=== PATIENT | male | born 1930 | race Caucasian/White ===

== ENCOUNTER → 2017-07-27 | Outpatient (CLI) | payer OTHER ==
[~2017-07-27] MED LIST: ASPCH81X PO; GLC500 PO; GLIM2TAB2 PO; LISI-729 PO; METO25TA56 PO; MULT-513 PO; OMEP20CA9 PO; PSYL55.43 PO; SIMV20TA2 PO
[2017-07-27 17:01] LABS: BASO % 0.5 %; BASO ABS # 0.02 K/uL (0-0.2); COMPLETE YES; EOS % 3.6 %; HEMATOCRIT 39.1 % (42-52); IG% 0.2 %; LYMPH ABS # 1.36 K/uL (1.2-3.4); MEAN CELL VOLUME 89.1 fL (80-100); MEAN CORPUSCULAR HEMOGLOBIN 30.1 pg (25-34); MEAN CORPUSCULAR HGB CONC 33.8 g/dl (32-36); MEAN PLATELET VOLUME 9.3 fL (7.4-10.4); MONO % 9.6 %; NEUT % 55.1 %; PLATELET COUNT 178 K/uL (130-400); RED BLOOD COUNT 4.39 M/uL (4.7-6.1); WHITE BLOOD COUNT 4.39 K/uL (4.8-10.8)
[2017-07-27 17:02] LABS: ALT/SGPT 26 U/L (12-78); AST/SGOT 18 U/L (15-37); BLOOD UREA NITROGEN 22 mg/dl (7-18); CALCIUM 8.8 mg/dl (8.5-10.1); CARBON DIOXIDE 29 mmol/L (21-32); CHLORIDE 101 mmol/L (98-107); GLUCOSE 288 mg/dl (70-99); POTASSIUM 4.8 mmol/L (3.5-5.1); SODIUM 136 mmol/L (136-145)
[2017-07-27 17:12] LABS: ALKALINE PHOSPHATASE 124 U/L (45-117)
[2017-07-28 06:30] LABS: ESTIMATED AVERAGE GLUCOSE 186 mg/dl; HA1C FLAG Normal (Normal)
--- NOTE | 2017-08-06 14:53 | CODING QUERY MEDICAL NECESSITY ---
SUPPORTING DIAGNOSIS NEEDED A supporting diagnosis is required for the test/procedure performed on this patient in order for us to be reimbursed by the patient's insurance. Please provide a supporting diagnosis for the following test/procedure listed below next to the test name along with your signature. *If there is no additional diagnosis for this patient that would support the following test/procedure please document that below next to the test/procedure. Test(s)/Procedure(s) that require a supporting diagnosis: * HEMOGLOBIN A1C DIAGNOSIS: Provider Signature: Date: Thank you Brittany Joseph [employer] Once completed, please kindly fax back to [phone] For questions please call [phone]
== END | disposition home or self-care (01) ==
LOC: C.LABPBG 14:22
PROVIDERS: ATTEND Internal Medicine
DX: J84.9 Interstitial pulmonary disease, unspecified (principal); E11.9 Type 2 diabetes mellitus without complications

== ENCOUNTER → 2017-08-05 | Outpatient (CLI) | payer OTHER ==
--- NOTE | 2017-08-05 08:57 | DIAGNOSTIC IMAGING REPORT ---
(CHEST) THORAX WITHOUT CLINICAL HISTORY: 87 years-old Male presenting with shortness of breath, interstitial lung disease. TECHNIQUE: Multidetector CT imaging of the chest was performed without the use of intravenous contrast. IV contrast: None. A dose lowering technique was used consistent with the principles of ALARA (as low as reasonably achievable). COMPARISON: 10/25/2012. CT DOSE (mGy.cm): The estimated cumulative dose is 386.64 mGy.cm. FINDINGS: Clerk To Justice topogram: Unremarkable. On soft tissue windows, normal thyroid and thoracic inlet. No axillary, supraclavicular, hilar, or mediastinal lymphadenopathy. Atherosclerosis of aortic arch. Mild enlargement of the main pulmonary artery, which measures 3.3 cm in maximal transverse dimension. Aortic valve and coronary artery calcification. Normal heart size. No pericardial or pleural effusion. Few small hypodensities in the liver, indeterminate but likely hepatic cysts or hamartomas. Borderline hepatic steatosis. Duodenal diverticulum. On lung windows, subpleural reticular opacities involving both the upper and lower lobes bilaterally. Only minimal focal subpleural cystic change along the right lower lobe could suggest honeycombing. There may be slight interval progression of subpleural cystic change along the right lateral lung. Otherwise, changes are chronic and similar to 2012. No evidence of emphysema. Mild interlobular septal thickening diffusely. Mosaic attenuation suggest small airways disease. No superimposed pulmonary nodule or infiltrate. Airways patent. On bone windows, mild degenerative changes of the thoracic spine. IMPRESSION: 1. Stable to slight interval progression of chronic interstitial lung disease with slight interval increase in subpleural cystic change suggestive of honeycombing. This could suggest usual interstitial pneumonia, although the lack of progression since 2011 and minimal degree of honeycombing could suggest an alternate diagnosis. No findings characteristic of nonspecific interstitial pneumonia or smoking related lung injury. Electronically signed by: Wesley Polanco M.D. 08/05/2017 8:56 AM Dictated Date/Time: 08/05/2017 8:44 AM
== END | disposition home or self-care (01) ==
LOC: C.CTS 08:31
PROVIDERS: ATTEND Internal Medicine
DX: R93.8 Abnormal findings on diagnostic imaging of other specified body structures (principal); J84.9 Interstitial pulmonary disease, unspecified; R05 Cough

== ENCOUNTER → 2017-10-05 | Outpatient (CLI) | payer OTHER ==
[2017-10-05 12:17] LABS: BASO % 0.6 %; BASO ABS # 0.03 K/uL (0-0.2); COMPLETE YES; EOS % 3.7 %; IG% 0.2 %; LYMPH % 30.8 %; LYMPH ABS # 1.48 K/uL (1.2-3.4); MEAN CELL VOLUME 90.3 fL (80-100); MEAN CORPUSCULAR HEMOGLOBIN 29.8 pg (25-34); MEAN PLATELET VOLUME 9.6 fL (7.4-10.4); NEUT % 54.7 %; PLATELET COUNT 164 K/uL (130-400); RED BLOOD COUNT 4.43 M/uL (4.7-6.1); WHITE BLOOD COUNT 4.81 K/uL (4.8-10.8)
[2017-10-05 12:42] LABS: ALT/SGPT 18 U/L (12-78); BLOOD UREA NITROGEN 23 mg/dl (7-18); BUN/CREATININE RATIO 17.1 (10-20); CARBON DIOXIDE 27 mmol/L (21-32); CHLORIDE 102 mmol/L (98-107); CREATININE 1.33 mg/dl (0.60-1.40); GLUCOSE 167 mg/dl (70-99); POTASSIUM 4.2 mmol/L (3.5-5.1); SODIUM 137 mmol/L (136-145)
[2017-10-05 12:45] LABS: ALKALINE PHOSPHATASE 101 U/L (45-117); AST/SGOT 12 U/L (15-37)
[2017-10-05 12:51] LABS: ESTIMATED AVERAGE GLUCOSE 194 mg/dl; HA1C FLAG Normal (Normal)
== END | disposition home or self-care (01) ==
LOC: C.LABPBG 08:39
PROVIDERS: ATTEND Internal Medicine
DX: E11.22 Type 2 diabetes mellitus with diabetic chronic kidney disease (principal); E78.5 Hyperlipidemia, unspecified; D64.9 Anemia, unspecified; R53.82 Chronic fatigue, unspecified; E11.42 Type 2 diabetes mellitus with diabetic polyneuropathy; I12.9 Hypertensive chronic kidney disease with stage 1 through stage 4 chronic kidney disease, or unspecified chronic kidney disease; N18.3 Chronic kidney disease, stage 3 (moderate)

== ENCOUNTER 2019-08-07 15:39 | Inpatient (IN) ==
[2019-08-07] MEDS ORDERED: ALBUT/IPRATROP 3MG/0.5MG NEB 3 ML VIAL NEB STA (16:09)
[2019-08-07] MEDS ORDERED: SODIUM CHLORIDE 0.9% 1000ML 1,000 ML IV ONE (16:09)
[2019-08-07 16:42] LABS: Basophils # (auto) 0.03 K/uL (0-0.2); Basophils % (auto) 0.3 %; Eosinophils # (auto) 0.17 K/uL (0-0.5); Eosinophils % (auto) 1.8 %; Hematocrit (blood only) 38.4 % (42-52); Hemoglobin 12.6 g/dL (14.0-18.0); Immature Granulocytes # (auto) 0.01 K/uL (0.00-0.02); Immature Granulocytes % (auto) 0.1 %; Lymphocytes # (auto) 4.52 K/uL (1.2-3.4); Lymphocytes % (auto) 48.1 %; Mean Corpuscular Hemoglobin 29.7 pg (25-34); Mean Corpuscular Hgb Conc 32.8 g/dL (32-36); Mean Corpuscular Volume 90.6 fL (80-100); Mean Platelet Volume 9.7 fL (7.4-10.4); Monocytes # (auto) 0.86 K/uL (0.11-0.59); Monocytes % (auto) 9.1 %; Neutrophils # (auto) 3.81 K/uL (1.4-6.5); Neutrophils % (auto) 40.6 %; Platelet Count 208 K/uL (130-400); RDW Coefficient of Variation 13.6 % (11.5-14.5); Red Blood Count 4.24 M/uL (4.7-6.1)
--- NOTE | 2019-08-07 16:58 | CT Scan Report ---
CT head/brain wo con CLINICAL HISTORY: 89 years-old Male presenting with syncope, fall. TECHNIQUE: Multidetector CT imaging of the head was performed without the use of intravenous contrast . IV contrast: None. One or more dose lowering techniques were used consistent with the principles of ALARA (as low as reasonably achievable), including automatic exposure control, mA or kV adjustment t o individual patient size, and/or use of iterative reconstruction. COMPARISON: 06/10/2019. CT DOSE (mGy.cm): The estimated cumulative dose is 729.78 mGycm. FINDINGS: Files Supervisor topogram: Unremarkable. Proportional ventricular and sulcal prominence, likely age-related parenchymal volume loss. No hemorr dali. Periventricular and subcortical white matter hypoattenuation, nonspecific but likely indicative of chronic small vessel ischemic change. No acute territorial infarct. No mass effect or midline loretta ft. No extra-axial fluid collection. Paranasal sinuses and mastoid air cells clear. Calvarium intact. IMPRESSION: 1. Chronic small vessel ischemic change. No acute intracranial abnormality. Electronically signed by: Wesley Polanco M.D. 08/07/2019 4:56 PM
[2019-08-07 17:01] LABS: Alanine Aminotransferase 17 U/L (12-78); Albumin Level 3.4 gm/dl (3.4-5.0); Aspartate Aminotransferase 12 U/L (15-37); BUN Creatinine Ratio 16.2 (10-20); Blood Urea Nitrogen 30 mg/dl (7-18); Calcium 8.7 mg/dl (8.5-10.1); Carbon Dioxide 18 mmol/L (21-32); Chloride 104 mmol/L (98-107); Creatinine Clr Calc Pharmacy 29.5 ml/min; Est GFR (African American) 37.9; Est GFR (Non-African American) 32.7; Glucose 151 mg/dl (70-99); Lipase 170 U/L (73-393); Sodium 137 mmol/L (136-145)
--- NOTE | 2019-08-07 17:07 | CT Scan Report ---
CT cervical spine wo con CLINICAL HISTORY: 89 years-old Male presenting with syncope, fall, trauma. TECHNIQUE: Multidetector CT of the cervical spine was performed without the use of intravenous contra st. IV contrast: None. One or more dose lowering techniques were used consistent with the principles of ALARA (as low as reasonably achievable), including automatic exposure control, mA or kV adjustment to individual patient size, and/or use of iterative reconstruction. COMPARISON: 08/28/2012. CT DOSE (mGy.cm): The estimated cumulative dose is 446.00 mGycm. FINDINGS: Data Communications Engineer topogram: Unremarkable. Normal cervical lordosis. Osteopenia. Vertebral bodies maintain normal height and alignment. Interver tebral disc height loss to a moderate to severe degree at C5-6 and C6-7, where there are disc osteoph yte complexes. Mild to moderate posterior spondylitic spurring at C5-6 with a disc bulge resulting in moderate effacement of the spinal canal at this level. Narrowing of the spinal canal noted to a less er degree due to spondylitic spurring at C3-4 and C6-7. Facet arthropathy and uncovertebral hypertrop hy result in varying degrees of osseous neural foraminal narrowing at several levels. Degenerative ch anges of the atlantodental articulation. No acute fracture or subluxation allowing for the severity o f osteopenia and degenerative change. Visualized portion of the skull base intact. Paraspinal soft ti ssues within normal limits. IMPRESSION: 1. No acute osseous injury of the cervical spine. 2. Suspected osteopenia. 3. Multilevel degenerative changes with multilevel osseous spinal canal and neural foraminal narrowi ng. Electronically signed by: Wesley Polanco M.D. 08/07/2019 5:06 PM
[2019-08-07 17:12] LABS: Albumin Globulin Ratio 0.9 (0.9-2); Alkaline Phosphatase 107 U/L (45-117); Bilirubin,Total 0.4 mg/dl (0.2-1); Globulin 3.6 gm/dl (2.5-4.0); NT Pro B Type Natriuretic Pept 182 pg/ml (0-1800); Troponin I < 0.015 ng/ml (0-0.045)
--- NOTE | 2019-08-07 17:12 | XRay Report ---
XR chest 1V portable CLINICAL HISTORY: 89 years-old Male presenting with syncope. TECHNIQUE: Portable upright AP view of the chest was obtained. COMPARISON: 06/10/2019. FINDINGS: Atherosclerosis of the aortic arch. Cardiac silhouette mildly enlarged. Bronchial wall thickening and coarsened lung markings with reticular opacities in the periphery of the right lung and at both lung bases. The appearance is unchanged from prior. No superimposed new focal opacity. No large effusion or pneumothorax. Osseous structures normal. Upper abdomen normal. IMPRESSION: 1. Mild cardiomegaly. 2. Chronic coarsened lung markings with peripheral and bibasilar reticular opacities likely relating to underlying chronic lung disease. No superimposed infiltrate to suggest pneumonia. Electronically signed by: Wesley Polanco M.D. 08/07/2019 5:11 PM
--- NOTE | 2019-08-07 17:27 | Emergency Department Note ---
Entered by Beckie Diaz acting as a scribe for History of Present Illness General Chief complaint: Illness Stated complaint: SYNCOPE, AMS, HYPOTENSION, Time Seen by Provider: 08/07/19 16:00 Source: patient History of Present Illness Provider complaint: Syncope Onset (ago): hour(s) 1 Radiation: non-radiation Pain Consistency: + other (Episodic ) Relieved By: + none Exacerbated By: + none Associated symptoms: + denies other symptoms (Head, neck, or back pain), + cough, + diaphoresis, + nausea/vomiting and + other (Looked "lopez", eyes rolled back in head); no shortness of breath The patient is a 89 year old male who presents to the Emergency Room with complaints of episodic syncope that occurred about an hour ago. The patient's family states that the patient fell asleep at the dinner table and got up to sleep on the couch when he took a few steps and fainted. The patient's family reports the patient was in and out of consciousness for about 10 minutes. The patient's family states the patient's symptoms do not radiate anywhere else on his body and is not relieved nor exacerbated by anything specific. The patient's family reports the patient's eyes rolled back in his head and he appeared "sweaty" and his skin looked lopez. Additionally, the patient's family states the patient experienced nausea/vomiting and a worsening cough. The patient's family denies the patient experiencing any shortness of breath. Additionally, the patient's family denies the patient having any head, neck, or back pain. The patient's family notes the patient has been in the ED before for similar symptoms and that these episodes have been going on for about a year. No other recent illness, no recent medication changes, no dietary changes. Patient states he felt well earlier today and got up and went to [facility]. Home Medications Home Medications Medication Instructions Recorded Confirmed Type glimepiride 2 mg tablet 2 mg PO QAM #180 tab 05/30/19 08/07/19 Rx simvastatin 40 mg tablet 20 mg PO QPM #45 tab 05/30/19 08/07/19 Rx acetaminophen [Tylenol Arthritis 650 mg PO QAM PRN 06/10/19 08/07/19 History Pain] aspirin [Adult Aspirin Regimen] 81 mg PO QAM 06/10/19 08/07/19 History metoprolol succinate 12.5 mg PO QAM 06/10/19 08/07/19 History omeprazole 20 mg PO QAM 06/10/19 08/07/19 History metformin 1,000 mg PO BIDM 08/07/19 08/07/19 History Allergies Allergy/AdvReac Type Severity Reaction Status Date / Time No Known Drug Allergies Allergy . 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) Anemia (Acute) Diabetes mellitus (Chronic) Osteoarthritis (Chronic) Lumbar radiculopathy (Chronic) Low back pain (Chronic) Hypercholesteremia (Chronic) HTN (hypertension) (Chronic) Surgical History Hx of appendectomy (Resolved) History of cholecystectomy (Resolved) Family History Mother Acute myocardial infarction Valvular heart disease Sister Alzheimer disease Daughter Multiple sclerosis Social History Preferred Language: German Communication Ability: Effective Visual Impairment: Limited Hearing Ability: Use of Hearing Aid Garment Manufacturer Required: No Beliefs That Will Affect Care: None marital status: Current Living Situation: Spouse current occupational status: retired Feels Safe at Home: Yes Smoking Status: Never smoker Hx Alcohol Use: No Hx Substance Use: No caffeine: Yes Seatbelt Use: always Review of Systems See HPI for pertinent positives & negatives. and A total of 10 systems reviewed and were otherwise negative Physical Exam Vital Signs Vital Signs - 24 hr 08/07/19 15:44 08/07/19 15:47 08/07/19 15:53 Temperature 36.6 C Temperature Source Oral Sepsis Recent Fever Within 48 Hours No Sepsis Action Taken by Nursing No Action Required Pulse Rate 75 72 74 Pulse Rate [Finger] Pulse Rate from SpO2 Sensor 76 76 Pulse Rhythm Regular Pulse Strength Normal Respiratory Rate 22 26 H 20 Respiratory Effort / Characteristics Non-Labored Spontaneous Respiratory Depth Normal Respiratory Pattern Regular Blood Pressure 102/61 102/61 Blood Pressure Mean 74 74 Blood Pressure Position Lying Pulse Oximetry 96 93 Oxygen Delivery Method Room Air Oxygen Flow Rate 08/07/19 16:00 08/07/19 16:07 08/07/19 16:29 Temperature Temperature Source Sepsis Recent Fever Within 48 Hours Sepsis Action Taken by Nursing Pulse Rate 73 70 Pulse Rate [Finger] 80 Pulse Rate from SpO2 Sensor 77 70 Pulse Rhythm Pulse Strength Respiratory Rate 19 18 17 Respiratory Effort / Characteristics Spontaneous Respiratory Depth Respiratory Pattern Blood Pressure 85/43 L 77/45 L Blood Pressure Mean 57 55 Blood Pressure Position Pulse Oximetry 93 94 94 Oxygen Delivery Method Nasal Cannula Oxygen Flow Rate 2 08/07/19 16:30 08/07/19 16:32 08/07/19 16:37 Temperature Temperature Source Sepsis Recent Fever Within 48 Hours Sepsis Action Taken by Nursing Pulse Rate 78 78 79 Pulse Rate [Finger] Pulse Rate from SpO2 Sensor 76 81 80 Pulse Rhythm Pulse Strength Respiratory Rate 19 22 26 H Respiratory Effort / Characteristics Respiratory Depth Respiratory Pattern Blood Pressure 118/67 Blood Pressure Mean 84 Blood Pressure Position Pulse Oximetry 98 91 94 Oxygen Delivery Method Oxygen Flow Rate 08/07/19 17:00 08/07/19 17:06 08/07/19 17:16 Temperature Temperature Source Sepsis Recent Fever Within 48 Hours Sepsis Action Taken by Nursing Pulse Rate 88 86 130 H Pulse Rate [Finger] Pulse Rate from SpO2 Sensor Pulse Rhythm Pulse Strength Respiratory Rate 24 22 26 H Respiratory Effort / Characteristics Respiratory Depth Respiratory Pattern Blood Pressure 118/41 L 93/62 L Blood Pressure Mean 66 72 Blood Pressure Position Pulse Oximetry Oxygen Delivery Method Oxygen Flow Rate 08/07/19 17:30 08/07/19 17:39 08/07/19 17:41 Temperature Temperature Source Sepsis Recent Fever Within 48 Hours Sepsis Action Taken by Nursing Pulse Rate 125 H 136 H 127 H Pulse Rate [Finger] Pulse Rate from SpO2 Sensor Pulse Rhythm Pulse Strength Respiratory Rate 31 H 21 24 Respiratory Effort / Characteristics Respiratory Depth Respiratory Pattern Blood Pressure 92/59 L 85/56 L 90/57 L Blood Pressure Mean 70 65 68 Blood Pressure Position Pulse Oximetry Oxygen Delivery Method Oxygen Flow Rate 08/07/19 17:45 08/07/19 17:51 08/07/19 18:00 Temperature Temperature Source Sepsis Recent Fever Within 48 Hours Sepsis Action Taken by Nursing Pulse Rate 93 H 91 H 94 H Pulse Rate [Finger] Pulse Rate from SpO2 Sensor Pulse Rhythm Pulse Strength Respiratory Rate 26 H 27 H 31 H Respiratory Effort / Characteristics Respiratory Depth Respiratory Pattern Blood Pressure 104/58 L 104/52 L Blood Pressure Mean 73 69 Blood Pressure Position Pulse Oximetry Oxygen Delivery Method Oxygen Flow Rate 08/07/19 18:01 08/07/19 18:12 Temperature Temperature Source Sepsis Recent Fever Within 48 Hours Sepsis Action Taken by Nursing Pulse Rate 97 H 95 H Pulse Rate [Finger] Pulse Rate from SpO2 Sensor Pulse Rhythm Pulse Strength Respiratory Rate 24 25 H Respiratory Effort / Characteristics Respiratory Depth Respiratory Pattern Blood Pressure 94/47 L 121/48 L Blood Pressure Mean 62 72 Blood Pressure Position Pulse Oximetry Oxygen Delivery Method Oxygen Flow Rate GENERAL: alert, well appearing, well nourished, no distress, non-toxic EYE EXAM: normal conjunctiva, PERRL and EOM's grossly intact OROPHARYNX: no exudate, no erythema, lips, buccal mucosa, and tongue normal and mucous membranes are moist NECK: supple, no nuchal rigidity, no adenopathy, non-tender LUNGS: Clear to auscultation. Normal chest wall mechanics. No wheeze, rhonchi, or rales. Frequent cough during exam. HEART: no murmurs, S1 normal and S2 normal. 77 NSR irregular rhythm. SA. Hypotensive. ABDOMEN: abdomen soft, non-tender, normo-active bowel sounds, no masses, no rebound or guarding. BACK: Back is symmetrical on inspection and there is no deformity, no midline tenderness, no CVA tenderness. SKIN: no rashes and no bruising UPPER EXTREMITIES: upper extremities are grossly normal. FROM, nml pulses b/l. LOWER EXTREMITIES: No pitting edema. FROM, nml pulses b/l. NEURO EXAM: Normal sensorium, cranial nerves II-XII grossly intact, normal speech, no gross weakness of arms, no gross weakness of legs. Course 1601: Past medical records reviewed. The patient was evaluated in room A12B. A complete history and physical exam was performed. 1614: I reviewed the patient's previous ER visit for syncope on May 2019 and the symptoms are very similar to that last visit. 1741: I reevaluated the patient and he was in rapid Afib and complaining of chest pain. However, the patient spontaneously concerted to a sinus rhythm in the 90's in front of me. The patient's chest pain began to resolve and his pressure came back up. 1757: I spoke with Dr. Richmond Oleary about the patient's case and he said we can Heparinize the patient. He will accept the patient for further evaluation. Administered Medications Acetaminophen (Tylenol) 650 mg PO Q4H PRN PRN Reason: Pain or Fever Stop: 09/06/19 18:19 Last Admin: 08/08/19 01:05 Dose: 650 mg Documented by: [id number] Heparin Sodium/Dextrose (Heparin Sodium/Dextrose) 25,000 units in 500 mls @ 18 mls/hr IV .Q24H BREANNA; Protocol Stop: 09/06/19 17:59 Last Admin: 08/07/19 18:28 Dose: 900 units/hr, 18 mls/hr Documented by: [id number] Cosigned by: [id number] Sodium Chloride (Nss 1000ml) 1,000 mls @ 70 mls/hr IV .[id number] BREANNA Stop: 09/06/19 18:29 Last Admin: 08/07/19 20:21 Dose: 70 mls/hr Documented by: [id number] Insulin Aspart (Novolog Flexpen) 0 units SC ACHS BREANNA Stop: 09/06/19 20:59 Last Admin: 08/07/19 20:50 Dose: 4 units Documented by: [id number] Cosigned by: [id number] Simvastatin (Zocor) 20 mg PO QPM BREANNA Stop: 09/06/19 20:59 Last Admin: 08/07/19 20:50 Dose: 20 mg Documented by: [id number] Discontinued Medications Albuterol (Duoneb) 3 ml NEB NOW STA Stop: 08/07/19 16:10 Last Admin: 08/07/19 16:27 Dose: 3 ml Documented by: [id number] Albuterol (Duoneb) 3 ml NEB NOW STA Stop: 08/08/19 01:20 Last Admin: 08/08/19 01:42 Dose: 3 ml Documented by: [id number] Heparin Sodium (Porcine) (Heparin Sodium (Porcine)) Confirm Administered Dose 5,000 units .ROUTE .STK-MED ONE Stop: 08/07/19 18:22 Last Admin: 08/07/19 18:29 Dose: 4,000 units Documented by: [id number] Cosigned by: [id number] Heparin Sodium/Dextrose () 1 ea N/A NOW STA; Protocol Stop: 08/07/19 17:58 Last Admin: 08/07/19 18:32 Dose: Not Given Documented by: [id number] Sodium Chloride (Nss 1000ml) 1,000 mls @ 999 mls/hr IV .Q1H1M ONE Stop: 08/07/19 17:09 Last Admin: 08/07/19 16:43 Dose: Not Given Documented by: [id number] Ondansetron HCl (Zofran) Confirm Administered Dose 4 mg .ROUTE .STK-MED ONE Stop: 08/07/19 17:38 Last Admin: 08/07/19 17:58 Dose: 4 mg Documented by: [id number] Medical Decision Making Differential Diagnosis Differential diagnosis: Etiologies such as vasovagal event, infection, anemia, hypoglycemia, hypovolemia, electrolyte abnormalities, dysrhythmias, cardiac ischemia, cardiac tamponade, valvular heart disease, structural heart disease, seizure, vascular stenosis/dissection, pulmonary embolism, intracerebral event, toxicological process, neurologic event, as well as others were entertained. Medical Records Attestation: I reviewed the patient's medical records. Home Medications Current Medication List: was personally reviewed by me Laboratory Data Attestation: I reviewed the patient's lab results. Result diagrams: 08/07/19 15:00 08/07/19 15:00 Lab Results 08/07/19 08/07/19 08/07/19 Range/Units 15:00 15:00 15:00 WBC 9.40 (4.8-10.8) K/uL RBC 4.24 L (4.7-6.1) M/uL Hgb 12.6 L (14.0-18.0) g/dL Hct 38.4 L (42-52) % MCV 90.6 (80-100) fL MCH 29.7 (25-34) pg MCHC 32.8 (32-36) g/dL RDW Std Deviation 45.0 (36.4-46.3) fL RDW Coeff of Edward 13.6 (11.5-14.5) % Plt Count 208 (130-400) K/uL MPV 9.7 (7.4-10.4) fL Immature Gran % (Auto) 0.1 % Neut % (Auto) 40.6 % Lymph % (Auto) 48.1 % Baldwin % (Auto) 9.1 % Eos % (Auto) 1.8 % Baso % (Auto) 0.3 % Immature Gran # (Auto) 0.01 (0.00-0.02) K/uL Neut # (Auto) 3.81 (1.4-6.5) K/uL Lymph # (Auto) 4.52 H (1.2-3.4) K/uL Baldwin # (Auto) 0.86 H (0.11-0.59) K/uL Eos # (Auto) 0.17 (0-0.5) K/uL Baso # (Auto) 0.03 (0-0.2) K/uL Sodium 137 (136-145) mmol/L Potassium 4.0 (3.5-5.1) mmol/L Chloride 104 (98-107) mmol/L Carbon Dioxide 18 L (21-32) mmol/L Anion Gap 15.0 H (3-11) BUN 30 H (7-18) mg/dl Creatinine 1.82 H (0.6-1.4) mg/dl Est Cr Clr Drug Dosing 29.5 ml/min Est GFR ( Amer) 37.9 Est GFR (Non-Af Amer) 32.7 BUN/Creatinine Ratio 16.2 (10-20) Glucose 151 H (70-99) mg/dl Lactate (0.4-2.0) mmol/L Calcium 8.7 (8.5-10.1) mg/dl Magnesium 2.0 (1.8-2.4) mg/dl Total Bilirubin 0.4 (0.2-1) mg/dl AST 12 L (15-37) U/L ALT 17 (12-78) U/L Alkaline Phosphatase 107 (45-117) U/L Troponin I < 0.015 (0-0.045) ng/ml NT-Pro-B Natriuret Pep 182 (0-1800) pg/ml Total Protein 7.0 (6.4-8.2) gm/dl Albumin 3.4 (3.4-5.0) gm/dl Globulin 3.6 (2.5-4.0) gm/dl Albumin/Globulin Ratio 0.9 (0.9-2) Lipase 170 (73-393) U/L Procalcitonin < 0.05 (0-0.5) ng/ml TSH 8.900 H (0.300-4.500) uIu/ml 08/07/19 Range/Units 16:41 WBC (4.8-10.8) K/uL RBC (4.7-6.1) M/uL Hgb (14.0-18.0) g/dL Hct (42-52) % MCV (80-100) fL MCH (25-34) pg MCHC (32-36) g/dL RDW Std Deviation (36.4-46.3) fL RDW Coeff of Edward (11.5-14.5) % Plt Count (130-400) K/uL MPV (7.4-10.4) fL Immature Gran % (Auto) % Neut % (Auto) % Lymph % (Auto) % Baldwin % (Auto) % Eos % (Auto) % Baso % (Auto) % Immature Gran # (Auto) (0.00-0.02) K/uL Neut # (Auto) (1.4-6.5) K/uL Lymph # (Auto) (1.2-3.4) K/uL Baldwin # (Auto) (0.11-0.59) K/uL Eos # (Auto) (0-0.5) K/uL Baso # (Auto) (0-0.2) K/uL Sodium (136-145) mmol/L Potassium (3.5-5.1) mmol/L Chloride (98-107) mmol/L Carbon Dioxide (21-32) mmol/L Anion Gap (3-11) BUN (7-18) mg/dl Creatinine (0.6-1.4) mg/dl Est Cr Clr Drug Dosing ml/min Est GFR ( Amer) Est GFR (Non-Af Amer) BUN/Creatinine Ratio (10-20) Glucose (70-99) mg/dl Lactate 3.4 H* (0.4-2.0) mmol/L Calcium (8.5-10.1) mg/dl Magnesium (1.8-2.4) mg/dl Total Bilirubin (0.2-1) mg/dl AST (15-37) U/L ALT (12-78) U/L Alkaline Phosphatase (45-117) U/L Troponin I (0-0.045) ng/ml NT-Pro-B Natriuret Pep (0-1800) pg/ml Total Protein (6.4-8.2) gm/dl Albumin (3.4-5.0) gm/dl Globulin (2.5-4.0) gm/dl Albumin/Globulin Ratio (0.9-2) Lipase (73-393) U/L Procalcitonin (0-0.5) ng/ml TSH (0.300-4.500) uIu/ml Imaging Data Radiologist's Impression: Radiology results as stated below per my review and the radiologist's interpretation: XR chest 1V portable CLINICAL HISTORY: 89 years-old Male presenting with syncope. TECHNIQUE: Portable upright AP view of the chest was obtained. COMPARISON: 06/10/2019. FINDINGS: Atherosclerosis of the aortic arch. Cardiac silhouette mildly enlarged. Bronchial wall thickening and coarsened lung markings with reticular opacities in the periphery of the right lung and at both lung bases. The appearance is unchanged from prior. No superimposed new focal opacity. No large effusion or pneumothorax. Osseous structures normal. Upper abdomen normal. IMPRESSION: 1. Mild cardiomegaly. 2. Chronic coarsened lung markings with peripheral and bibasilar reticular opacities likely relating to underlying chronic lung disease. No superimposed infiltrate to suggest pneumonia. Electronically signed by: Wesley Polanco M.D. 08/07/2019 5:[address] head/brain wo con CLINICAL HISTORY: 89 years-old Male presenting with syncope, fall. TECHNIQUE: Multidetector CT imaging of the head was performed without the use of intravenous contrast. IV contrast: None. One or more dose lowering techniques were used consistent with the principles of ALARA (as low as reasonably a chievable), including automatic exposure control, mA or kV adjustment to individual patient size, and/or use of iterative reconstruction. COMPARISON: 06/10/2019. CT DOSE (mGy.cm): The estimated cumulative dose is 729.78 mGycm. FINDINGS: Relief Driller topogram: Unremarkable. Proportional ventricular and sulcal prominence, likely age-related parenchymal volume loss. No hemorrhage. Periventricular and subcortical white matter hypoattenuation, nonspecific but likely indicative of chronic small vessel is chemic change. No acute territorial infarct. No mass effect or midline shift. No extra-axial fluid collection. Paranasal sinuses and mastoid air cells clear. Calvarium intact. IMPRESSION: 1. Chronic small vessel ischemic change. No acute intracranial abnormality. Electronically signed by: Wesley Polanco M.D. 08/07/2019 4:[address] cervical spine wo con CLINICAL HISTORY: 89 years-old Male presenting with syncope, fall, trauma. TECHNIQUE: Multidetector CT of the cervical spine was performed without the use of intravenous contrast. IV contrast: None. One or more dose lowering techniques were used consistent with the principles of ALARA (as low as reasonably achievable), including automatic exposure control, mA or kV adjustment to individual patient size, and/or use of iterative reconstruction. COMPARISON: 08/28/2012. CT DOSE (mGy.cm): The estimated cumulative dose is 446.00 mGycm. FINDINGS: Relief Driller topogram: Unremarkable. Normal cervical lordosis. Osteopenia. Vertebral bodies maintain normal height and alignment. Intervertebral disc height loss to a moderate to severe degree at C5-6 and C6-7, where there are disc osteophyte complexes. Mild to moderate posterior spondylitic spurring at C5-6 with a disc bulge resulting in moderate effacement of the spinal canal at this level. Narrowing of the spinal canal noted to a lesser degree due to spondylitic spurring at C3-4 and C6-7. Facet arthropathy and uncovertebral hypertrophy result in varying degrees of osseous neural foraminal narrowing at several levels. Degenerative changes of the atlantodental articulation. No acute fracture or subluxation allowing for the severity of osteopenia and degenerative change. Visualized portion of the skull base intact. Paraspinal soft tissues within normal limits. IMPRESSION: 1. No acute osseous injury of the cervical spine. 2. Suspected osteopenia. 3. Multilevel degenerative changes with multilevel osseous spinal canal and neural foraminal narrowing. Electronically signed by: Wesley Polanco M.D. 08/07/2019 5:06 PM ECG Data Attestation: I personally reviewed and interpreted this ECG as follows: Indication: syncope Rate (beats per minute): 75 Rhythm: atrial fibrillation Findings: + other (Normal intervals, normal axis, aVL), + T-wave inversion (V2 ) and + ectopy; no ST elevation Additional Comments: Repeat EKG: Atrial fibrillation rate of 133. Normal axis and normal intervals. QRS and QTC. ST depression in 1 AVL V4 and V5. Questionable ST elevation in Lead 3. Blood Pressure Blood Pressure Findings: Normal blood pressure Blood Pressure Disposition: further management by hospitalist SACHNI Narrative Patient ill-appearing here, and was initially markedly hypotensive. This did slowly improve with IV fluids. It was noted while awaiting results of patient's labs and imaging, the patient did have an episode of rapid A. fib which caused hypotension and the patient combined of accompany chest pain at this time. This was short-lived, and resolve spontaneously prior to administering any medicatio n. With the return of normal sinus rhythm, patient's blood pressure improved, and chest pain resolved. Patient did continue to have borderline blood pressures at the receiving 3 L of IV fluids. I do not suspect bacteremia/sepsis despite elevated lactic acid as white blood cell count procalcitonin were negative. Feel patient's elevated lactic acid more likely secondary to poor perfusion due to hypotension during the event and EMS transport in. Patient does have risk factors for ACS. Patient with a normal and nonfocal neuro exam at bedside, no acute BENCH WORKER HOLLOW HANDLE pathology noted on CT. Patient was made aware of all results and was in agreement with plan for additional inpatient management. Discussed the case with the hospitalist who is in agreement with initiation of heparin at this time despite patient not currently requiring any other rate controlling agents as patient has an elevated risk of stroke. Patient's other abnormalities appear stable compared to prior including his chronic kidney disease. Impression & Plan Syncope, A-fib, Chest pain, Acute hypotension, Elevated lactic acid level Critical Care Time Critical Care Time: Yes Total Critical Care Time: 40 I have personally spent 40 minutes of critical care time in the direct management of this patient. This includes bedside care, interpretation of diagnostic studies, and testing, discussion with consultants, patient, and family members, and other required patient management activities. This 40 minutes is in excess of all separately billable procedures. Discharge Plan Visit Data *Final* Discharge Date/Time: 08/07/19 18:47 Chief Complaint: Illness Stated Complaint: SYNCOPE, AMS, HYPOTENSION, ED Provider: Dalia Siddiqui Discharge Problem: Syncope, A-fib, Chest pain, Acute hypotension, Elevated lactic acid level Patient Disposition: Admitted As Inpatient Discharge Instructions Interventions: ED Discharge Assessment Last Done: 08/07/19 18:47 Discharge Problem: Syncope Qualifiers: Syncope type: unspecified Qualified Code(s): R55 - Syncope and collapse A-fib Qualifiers: Atrial fibrillation type: unspecified Qualified Code(s): I48.91 - Unspecified atrial fibrillation Chest pain Qualifiers: Chest pain type: unspecified Qualified Code(s): R07.9 - Chest pain, unspecified The scribe's documentation has been prepared under my direction and personally reviewed by me in its entirety. I confirm that the note above accurately reflects all work, treatment, procedures, and medical decision making performed by me.
[2019-08-07] MEDS ORDERED: ONDANSETRON INJ 2 MG/ML 2 ML VIAL ONE (17:37)
[2019-08-07] MEDS ORDERED: Heparin IV Low Dose WITH Bolus STA (17:57)
[2019-08-07] MEDS ORDERED: ACETAMINOPHEN 325 MG TAB PO PRN ×2 (18:19→18:20)
[2019-08-07] MEDS ORDERED: NITROGLYCERIN SL 0.4 MG/TAB TAB SL PRN (18:20)
[2019-08-07] MEDS ORDERED: ALUMINUM/MAGNESIUM SUSP 30 ML UDC PO PRN (18:20)
[2019-08-07] MEDS ORDERED: ZOLPIDEM TARTRATE 5 MG TAB PO PRN (18:20)
[2019-08-07] MEDS ORDERED: ONDANSETRON INJ 2 MG/ML 2 ML VIAL IV PRN (18:20)
[2019-08-07] MEDS ORDERED: MAGNESIUM HYDROXIDE SUSP 30 ML UDC PO PRN (18:20)
[2019-08-07] MEDS ORDERED: POLYETHYLENE (MIRALAX) 17 GM PACK PO PRN (18:20)
[2019-08-07] MEDS ORDERED: HEPARIN SOD 5,000 UNIT/0.5 ML VIAL ONE (18:21)
[2019-08-07] MEDS: HEPARIN SODIUM/DEXTROSE 25,000 UNITS/500 ML BAG IV SCH (18:28)
[2019-08-07 18:35] LABS: Prothrombin Time 10.3 Seconds (9.0-12.0)
--- NOTE | 2019-08-07 19:44 | History & Physical Report ---
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 fib RVR Improved with IV fluids Hold blood pressure medications Since he is currently sinus rhythm we will hold off Cardizem/metoprolol If he would develop A. fib again we will consider digoxin IV or amiodarone Although would rather avoid amiodarone for now due to abnormal chest imaging might be indicating underlying chronic pulmonary disease (4) Type 2 diabetes mellitus: Hold oral hypoglycemic, start patient on sliding scale insulin (5) Interstitial lung disease: No known disease but appears in the imaging that he has some reticulo-vascular density. Family were instructed to do sleep study as an outpatient after recovery (6) Hyperlipidemia: Check hemoglobin A1c and lipid panel Continue simvastatin History of Present Illness 89 years old man with past medical history of diabetes mellitus type 2 on oral hypoglycemics, dyslipidemia, essential hypertension, chronic kidney disease stage III and obesity was in his regular state of health until today, he went to the jewish and then went to a family dinner at his daughter's house., Said that he stood up to go to sit and lazy chair and suddenly lost consciousness as per family he fell on the floor and they called paramedics, he does have history of similar episode in May that was attributed to vasovagal episode. When paramedics arrived his blood sugar was within normal limits, his pressure was 60/40 he received 2 L of IV fluids brought to the ED his pressure was around 90/50 he received some more IV fluids then suddenly he went into A. fib with RVR with a pressure of 70/40. With a little bit more hydration his heart rate improved and fluid back to sinus rhythm. He denies any chest pain but have some shortness of breath and some cough. No other complaint in the review of system. Primary Care Provider: Wesley Harley MD Allergies Allergy/AdvReac Type Severity Reaction Status Date / Time No Known Drug Allergies Allergy . Verified 08/07/19 16:25 Home Medications Home Medications Medication Instructions Recorded Confirmed Type glimepiride 2 mg tablet 2 mg PO QAM #180 tab 05/30/19 08/07/19 Rx simvastatin 40 mg tablet 20 mg PO QPM #45 tab 05/30/19 08/07/19 Rx acetaminophen [Tylenol Arthritis 650 mg PO QAM PRN 06/10/19 08/07/19 History Pain] aspirin [Adult Aspirin Regimen] 81 mg PO QAM 06/10/19 08/07/19 History metoprolol succinate 12.5 mg PO QAM 06/10/19 08/07/19 History omeprazole 20 mg PO QAM 06/10/19 08/07/19 History metformin 1,000 mg PO BIDM 08/07/19 08/07/19 History Past Med/Surg History Medical History Vasovagal syncope (Acute) Type 2 diabetes mellitus (Chronic) Interstitial lung disease (Acute) Hypertension (Acute) Hyperlipidemia (Acute) Dyspnea on exertion (Acute) Diabetic peripheral neuropathy (Acute) Cough (Acute) Chronic osteoarthritis (Acute) Chronic kidney disease (CKD) stage G3a/A3, moderately decreased glomerular filtration rate (GFR) between 45-59 mL/min/1.73 square meter and albuminuria creatinine ratio greater than 300 mg/g (Acute) Chronic fatigue syndrome (Acute) Chronic bilateral low back pain with right-sided sciatica (Acute) Anemia (Acute) Diabetes mellitus (Chronic) Osteoarthritis (Chronic) Lumbar radiculopathy (Chronic) Low back pain (Chronic) Hypercholesteremia (Chronic) HTN (hypertension) (Chronic) Surgical History Hx of appendectomy (Resolved) History of cholecystectomy (Resolved) Family History Mother Acute myocardial infarction Valvular heart disease Sister Alzheimer disease Daughter Multiple sclerosis Social History Preferred Language: Citizen Of [place] Communication Ability: Effective Visual Impairment: Limited Hearing Ability: Use of Hearing Aid Beliefs That Will Affect Care: None marital status: Current Living Situation: Spouse current occupational status: retired Feels Safe at Home: Yes Smoking Status: Never smoker Hx Alcohol Use: Yes (socially) Hx Substance Use: No caffeine: Yes Seatbelt Use: always Review of Systems Review of Systems: Review of system Constitutional: No fever / no chills / no sweats / no weakness / no fatigue Eyes: no blurring of vision / no eye pain / no discharge / no redness ENT: no hearing loss / no epistaxis /no swallowing problems Respiratory: Shortness of breath and slight dry cough Cardiovascular: no Chest pain / no lower extremity edema / no palpitation Abdomen: no pain / no nausea / no vomiting / no constipation Musculoskeletal: no joint pain / no muscle pain / no joint swelling Genitourinary: no dysuria / no incontinence / no urinary retention Neurologic: Syncope as mentioned in HPI, no focal weakness / no numbness/tingling / no ataxia Psychiatric: no depression symptoms / no anxiety / no insomnia Endocrine: no excessive thirst / no excessive urination Hematologic: no abnormal bleeding / no bruising / no LN swelling Skin: No rash / no pallor Physical Exam Physical Exam: Physical examination General morbidly obese, appears to be in moderate distress HEENT: Atraumatic , normocephalic /no jaundice /no pallor /anicteric /no dry mucous membrane /normal external ear inspection Neck: Supple /no swelling /central trach Heart: S1/S2 normal/regular rate and rhythm/no gallop /no rub /no murmur Lungs: Poor inspiratory effort, decreased air entry bilaterally, scattered rhonchi Abdomen: Soft/nontender/no guarding/no rebound/no organomegaly/no pulsatile mass Musculoskeletal: No swelling/no edema/no tenderness/normal range of motion Neuro exam: Awake alert oriented 3/cranial nerves II through XII appear to be intact/sensation intact/moves all extremities/no abnormal movements Psychiatric evaluation: No depressed mood/normal affect Skin: No rash on exposed skin area/no erythema Extremity: Normal pulse/no pitting edema/no clubbing or cyanosis Results & Data Vital Signs (Past 12 Hours) Vital Signs Temp Pulse Pulse Resp BP Pulse Ox 08/07/19 19:00 105 H 30 H 138/80 08/07/19 18:41 99 H 29 H 95/46 L 08/07/19 18:37 96 H 27 H 91/54 L 08/07/19 18:35 100 H 27 H 86/53 L 08/07/19 18:32 97 H 25 H 79/52 L 08/07/19 18:31 98 H 30 H 08/07/19 18:30 99 H 26 H 08/07/19 18:21 98 H 31 H 102/67 08/07/19 18:12 95 H 25 H 121/48 L 08/07/19 18:01 97 H 24 94/47 L 08/07/19 18:00 94 H 31 H 08/07/19 17:51 91 H 27 H 104/52 L 08/07/19 17:45 93 H 26 H 104/58 L 08/07/19 17:41 127 H 24 90/57 L 08/07/19 17:39 136 H 21 85/56 L 08/07/19 17:30 125 H 31 H 92/59 L 08/07/19 17:16 130 H 26 H 93/62 L 08/07/19 17:06 86 22 118/41 L 08/07/19 17:00 88 24 08/07/19 16:37 79 26 H 118/67 94 08/07/19 16:32 78 22 91 08/07/19 16:30 78 19 98 08/07/19 16:29 80 17 94 08/07/19 16:07 70 18 77/45 L 94 08/07/19 16:00 73 19 85/43 L 93 08/07/19 15:53 36.6 C 74 20 102/61 93 08/07/19 15:47 72 26 H 96 08/07/19 15:44 75 22 102/61 Code Status & VTE Plan VTE Prophylaxis Plan VTE Prophylaxis will be ordered: Yes PG Care Time/CCT Total # of Minutes Spent Total Time Spent with Patient: 35 minutes total time spent is greater than 50% in coordination of care (as documented) at patient's floor/unit and/or counseling patient/family discussion of care with nursing staff (1) Syncope Syncope type: unspecified Qualified Code(s): R55 - Syncope and collapse (2) Type 2 diabetes mellitus Diabetes mellitus skilled nursing insulin use: without skilled nursing use Diabetes mellitus complication status: with kidney complications Diabetes mellitus complication detail: with chronic kidney disease Chronic kidney disease stage: stage 3 (moderate) Qualified Code(s): E11.22 - Type 2 diabetes mellitus with diabetic chronic kidney disease; N18.3 - Chronic kidney disease, stage 3 (moderate) (3) Hyperlipidemia Hyperlipidemia type: unspecified Qualified Code(s): E78.5 - Hyperlipidemia, unspecified
[2019-08-07] MEDS ORDERED: GLUCAGON FOR INJ 1 MG VIAL SQ PRN (20:02)
[2019-08-07] MEDS ORDERED: GLUCOSE 10 TABS/TUBE PO PRN (20:02)
[2019-08-07] MEDS ORDERED: CARBOHYDRATES FOR HYPOGLYCEMIA PO PRN (20:02)
[2019-08-07] MEDS ORDERED: GLUCOSE 40% GEL 15 GM TUBE PO PRN (20:02)
[2019-08-07] MEDS ORDERED: DEXTROSE 50% 50 ML SYRINGE IV PRN (20:02)
[2019-08-07] MEDS: SODIUM CHLORIDE 0.9% 1000ML 1,000 ML IV SCH (20:21)
[2019-08-07] MEDS: INSULIN ASPART 100 UNITS/ML 3 ML PEN SC SCH (20:50)
[2019-08-07] MEDS: SIMVASTATIN 40 MG TAB PO SCH (20:50)
[2019-08-08 01:07] LABS: Partial Thromboplastin Ratio 2.4
[2019-08-08 01:10] LABS: Partial Thromboplastin Time 65.3 Seconds (21.0-31.0)
[2019-08-08] MEDS ORDERED: FUROSEMIDE 40 MG/4 ML VIAL IV STA (01:19)
[2019-08-08] MEDS ORDERED: ALBUT/IPRATROP 3MG/0.5MG NEB 3 ML VIAL NEB STA (01:19)
[2019-08-08] MEDS ORDERED: methylPREDNISolone 40 MG in SYRINGE 0 ML IV ONE (01:45)
[2019-08-08] MEDS ORDERED: FUROSEMIDE 40 MG in SYRINGE 0 ML IV ONE (01:45)
[2019-08-08 05:29] LABS: Appearance Urine Clear (Clear); Bacteria Urine Automated Negative (Negative); Bilirubin Urine Negative (Negative); Blood Urine 1+ (Negative); Color Urine Yellow; Epithelial Cell Urine Auto 0-5 /lpf (0-5); Glucose Urine UA 1+ (Negative); Ketones Urine Negative (Negative); Leukocyte Esterase Urine Trace (Negative); Nitrite Urine Negative (Negative); Protein Urine Negative (Negative); RBC Urine Automated 0-4 /hpf (0-4); Specific Gravity Urine 1.016 (1.000-1.030); Urobilinogen Urine Negative (Negative)
[2019-08-08 07:17] LABS: Hematocrit (blood only) 34.8 % (42-52); Hemoglobin 11.7 g/dL (14.0-18.0); Immature Granulocytes # (auto) 0.01 K/uL (0.00-0.02); Immature Granulocytes % (auto) 0.2 %; Lymphocytes # (auto) 0.52 K/uL (1.2-3.4); Lymphocytes % (auto) 9.4 %; Mean Corpuscular Hemoglobin 30.1 pg (25-34); Mean Corpuscular Hgb Conc 33.6 g/dL (32-36); Mean Corpuscular Volume 89.5 fL (80-100); Mean Platelet Volume 9.3 fL (7.4-10.4); Monocytes # (auto) 0.44 K/uL (0.11-0.59); Neutrophils # (auto) 4.55 K/uL (1.4-6.5); Neutrophils % (auto) 82.4 %; Platelet Count 137 K/uL (130-400); RDW Coefficient of Variation 13.6 % (11.5-14.5); RDW Standard Deviation 44.7 fL (36.4-46.3); Red Blood Count 3.89 M/uL (4.7-6.1); White Blood Count 5.52 K/uL (4.8-10.8)
[2019-08-08 07:29] LABS: Estimated Average Glucose 203 mg/dl; Hemoglobin A1C 8.7 % (4.5-5.6)
[2019-08-08 07:42] LABS: Partial Thromboplastin Ratio 2.9
[2019-08-08 07:45] LABS: Alanine Aminotransferase 18 U/L (12-78); Albumin Globulin Ratio 0.9 (0.9-2); Albumin Level 2.9 gm/dl (3.4-5.0); Alkaline Phosphatase 66 U/L (45-117); Aspartate Aminotransferase 12 U/L (15-37); BUN Creatinine Ratio 18.4 (10-20); Bilirubin,Total 0.6 mg/dl (0.2-1); Blood Urea Nitrogen 34 mg/dl (7-18); Calcium 7.8 mg/dl (8.5-10.1); Carbon Dioxide 21 mmol/L (21-32); Chloride 104 mmol/L (98-107); Chol HDL Ratio 2; Cholesterol 92 mg/dl (0-200); Creatinine Clr Calc Pharmacy 29.8 ml/min; Est GFR (African American) 36.9; Est GFR (Non-African American) 31.8; Globulin 3.1 gm/dl (2.5-4.0); Glucose 325 mg/dl (70-99); HDL Cholesterol 41 mg/dl; LDL Cholesterol Calculated 35 mg/dl; Magnesium 1.5 mg/dl (1.8-2.4); Potassium 4.4 mmol/L (3.5-5.1); Sodium 136 mmol/L (136-145); Triglycerides 78 mg/dl (0-150); Troponin I < 0.015 ng/ml (0-0.045); VLDL Cholesterol 16 mg/dl
[2019-08-08 07:48] LABS: Partial Thromboplastin Time 78.7 Seconds (21.0-31.0)
[2019-08-08 08:01] LABS: Beta-Hydroxybutyrate 3.17 mg/dl (0.2-2.81)
[2019-08-08] MEDS: INSULIN ASPART 100 UNITS/ML 3 ML PEN SC SCH ×4 (08:50→21:48)
[2019-08-08] MEDS: PANTOprazole 40 MG TAB PO SCH (08:55)
[2019-08-08] MEDS: SODIUM CHLORIDE 0.9% 1000ML 1,000 ML IV SCH ×2 (08:55→21:44)
[2019-08-08] MEDS ORDERED: PHARMACY GLYCEMIC MGMT CONSULT PRN (09:02)
--- NOTE | 2019-08-08 09:26 | Pharmacy Report ---
Glycemic Control Consultation - Date of Service August 08, 2019 - Scope Scope: Glycemic Pharmacist consulted by Dr Cuevas on 08/08/19 for glycemic control and to write orders per [facility] inpatient glycemic control protocol - Objective Weight: 77.9 kg Accuchecks BSG (last 24hrs): 08/07/19 08/07/19 08/08/19 15:00 20:33 06:47 Glucose 151 H 325 H* POC Glucose 225 H 08/08/19 08/08/19 07:19 07:20 Glucose POC Glucose 311 H* 333 H* Laboratory Data (last 24hrs): 08/07/19 08/08/19 15:00 06:47 Potassium 4.0 4.4 Carbon Dioxide 18 L 21 Anion Gap 15.0 H 11.0 Creatinine 1.82 H 1.86 H Est Cr Clr Drug Dosing 29.5 29.8 Beta-Hydroxybutyric Acd 3.17 H HbA1c: Hemoglobin A1c 8.7 % (4.5-5.6) H 08/08/19 06:47 - Recent Pertinent Medications Outpatient Anti-diabetic Regimen: * Glimepiride 2 mg PO qAM * Metformin 1000 mg PO BIDM * A1c = 8.7 % (08/08/19) - Assessment & Plan Assessment & Plan: ASSESSMENT: * Patient admitted for observation to [facility] on 08/07 with new onset Afib with RVR * H complete with Type 2 DM, CKD stage 3, and dyslipidemia * Interstitial lung disease noted on chest x-ray * Given IV methylprednisolone 40 mg x 1 given this morning @0200 * BSG this AM is 333 mg/dL PLAN FOR INPATIENT GLYCEMIC CONTROL: * Pt is maintained on oral antidiabetic agents as an outpatient * Oral agents are not recommended for inpatient use due to drug interactions, changing PO intake, and difficulty titrating for acute hyper/hypoglycemia. ADA recommends re-initiating outpatient oral agents 1-2 days prior to discharge if/when appropriate if they were held on admission. * Will hold oral agents for admission and utilize SQ basal bolus insulin regimen which is the recommended regimen for inpatient glycemic control. * Will initiate weight based insulin dosing for insulin saqib patient and titrate based on BSG trends. * Basal insulin * NPH 30 units (0.4 unit/kg) x 1 ordered this morning due to administration of IV methylprednisolone * Lantus scale for tonight * -BSG less than 100 mg/dL - 0 units * -BSG between 100-160 mg/dL - 7 units * -BSG greater than 160 mg/dL - 13 units * Bolus insulin - will change to in between weight stress of 2/3 based on improvement in post lunch BSG today * NovoLog per scale ACHS or Q6hrs while NPO * Goal Range: Low 120 mg/dL - High 160 mg/dL * Correction Factor: 25 mg/dL/unit * Nutritional / Prandial insulin per carb ratio of 1 unit per 9 grams CHO consumed * 4 units of regular insulin IV given with lunch * Please note that the plan above was derived based on current level of insulin resistance and hospital stress. These recommendations are appropriate for inpatient admission only. Plan of care upon discharge will need to be reassessed to avoid potential outpatient hypo/hyperglycemia. Thank you.
[2019-08-08] MEDS ORDERED: NovoLIN-N (NPH) PER UNIT CHARGE SQ ONE (09:30)
[2019-08-08] MEDS ORDERED: INSULIN ASPART 100 UNITS/ML 3 ML PEN SC ONE (09:30)
[2019-08-08] MEDS ORDERED: INSULIN HUMAN REGULAR PER UNIT 4 UNITS in SYRINGE 0 ML IV ONE (11:45)
--- NOTE | 2019-08-08 11:48 | Cardiology Consultation ---
Date of Consultation August 08, 2019 Assessment & Plan (1) Loss of consciousness: He has had several episodes of loss of consciousness, specifically in May when he came into the emergency room although that was associated with nausea and vomiting and was attributed to a vagal reaction, and now this admission. On this occasion he clearly had hypotension, although atrial fibrillation may have aggravated the hypotension it was present nevertheless. The hypotension appears to be a cause of his loss of consciousness. His history of these going back even to when they were first is a little bit confusing, perhaps those were vagal events back then although this current episode does not seem to be clearly vagally mediated. Apparently episodes have been recurrent over the last several years. (2) Acute hypotension: I am not clear why he was hypotensive. Perhaps he was dehydrated, it is too prolonged to be consistent with primarily a vagal reaction, it was present both with and without atrial fibrillation so atrial fibrillation is not the primary cause of it. Dehydration could be due to poor oral intake, possibly osmotic diuresis from his elevated blood sugar. He is on minimal medications to cause low blood pressure (just low-dose metoprolol) so unless our medication list is incomplete, which is possible, that does not explain the episode. (3) Atrial fibrillation with RVR: He did have atrial fibrillation identified in the emergency room, it only lasted 1/2-hour and the rate was about 130 bpm. Based on his vital sign record his blood pressure done 4 times during the time of atrial fibrillation was not markedly reduced compared to other times although it is reported that his blood pressure dropped during atrial fibrillation. His blood pressure is recorded as slightly higher after termination of the atrial fibrillation then during (ranging from 85-92 systolic during atrial fibrillation and being just over 100 after termination) so this is consistent with some drop in blood pressure however his blood pressure was 77/45 before the atrial fibrillation started. Based on this might be good to try to control the rate during atrial fibrillation, however calcium blockade and beta-blockade are likely to reduce his blood pressure at other times as well. I would recommend adding a low-dose digoxin to his regimen to try to avoid hypotension and help with some rate control during atrial fibrillation, additionally it would be prudent to consider anticoagulation since we do not know how often he has the arrhythmia. He was not clearly symptomatic during it. I do not think that is crucial now since he only had a brief documented episode of atrial fibrillation but at discharge or if he has more episodes we probably should consider it. (4) HTN (hypertension): He has a history of hypertension, but interestingly he is not hypertensive here despite minimal blood pressure medications as an outpatient. Despite receiving fluid he is still hypotensive today. If we are confident that he is medications are all accounted for in his history that is hard to explain and it may pay to consider some other cause for hypotension. History of Present Illness Reason for Consultation: Loss of consciousness, atrial fibrillation Attending Physician: Jesús Cuevas History of Present Illness This is a 89-year-old male who has a history of hypertension, diabetes mellitus, anemia, chronic kidney disease but no known prior heart disease. He did present to the emergency room on June 10, 2019 when he ate a meal, went outside and either lost consciousness or fell and began vomiting. This was felt to possibly represent a vagal episode. He presents now with syncope. It was thought that he fell asleep at dinner, but then he got up to go to the couch and he took a few steps and collapsed. He was apparently and out of consciousness for about 10 minutes. He evidently did have nausea and vomiting, appeared sweaty and his skin looked lopez. In the emergency room he was markedly hypotensive, he was not in atrial fibrillation on arrival however did have atrial fibrillation subsequently. His blood pressure apparently had improved with IV fluids i nitially, dropped again with the atrial fibrillation, and then improved with termination of the atrial fibrillation which only lasted about 30 minutes. The heart rate was about 130 on average during atrial fibrillation. His home medications include only metoprolol succinate 12.5 mg daily as an antihypertensive. Blood sugar was not low during this episode. He was admitted for evaluation. The time of my evaluation today his was present. She reports that he has had these episodes several times a year going back about 8 years, and he has been in the hospital for evaluation multiple times with no clear etiology identified. She reports that he may have had similar episodes going back even to when they were first and when his kids were young, at that time he would feel a little funny on have to go to bed to rest. She feels that those episodes were not as severe as what is being identified now. On discussing symptoms with the patient, he has little recollection of these e vents. He only recalls getting up to walk to the next room yesterday, then waking up in the ambulance. He does not recall much about other episodes either. Allergies Allergy/AdvReac Type Severity Reaction Status Date / Time No Known Drug Allergies Allergy . Verified 08/07/19 16:25 Home Medications Home Medications Medication Instructions Recorded Confirmed Type glimepiride 2 mg tablet 2 mg PO QAM #180 tab 05/30/19 08/07/19 Rx simvastatin 40 mg tablet 20 mg PO QPM #45 tab 05/30/19 08/07/19 Rx acetaminophen [Tylenol Arthritis 650 mg PO QAM PRN 06/10/19 08/07/19 History Pain] aspirin [Adult Aspirin Regimen] 81 mg PO QAM 06/10/19 08/07/19 History metoprolol succinate 12.5 mg PO QAM 06/10/19 08/07/19 History omeprazole 20 mg PO QAM 06/10/19 08/07/19 History metformin 1,000 mg PO BIDM 08/07/19 08/07/19 History Patient History Medical History Vasovagal syncope (Acute) Type 2 diabetes mellitus (Chronic) Interstitial lung disease (Acute) Hypertension (Acute) Hyperlipidemia (Acute) Dyspnea on exertion (Acute) Diabetic peripheral neuropathy (Acute) Cough (Acute) Chronic osteoarthritis (Acute) Chronic kidney disease (CKD) stage G3a/A3, moderately decreased glomerular filtration rate (GFR) between 45-59 mL/min/1.73 square meter and albuminuria creatinine ratio greater than 300 mg/g (Acute) Chronic fatigue syndrome (Acute) Chronic bilateral low back pain with right-sided sciatica (Acute) Anemia (Acute) Diabetes mellitus (Chronic) Osteoarthritis (Chronic) Lumbar radiculopathy (Chronic) Low back pain (Chronic) Hypercholesteremia (Chronic) HTN (hypertension) (Chronic) Surgical History Hx of appendectomy (Resolved) History of cholecystectomy (Resolved) Family History Mother Acute myocardial infarction Valvular heart disease Sister Alzheimer disease Daughter Multiple sclerosis Social History Preferred Language: [place] Communication Ability: Effective Visual Impairment: Limited Hearing Ability: Use of Hearing Aid Bulb Sorter Required: No Beliefs That Will Affect Care: None marital status: Current Living Situation: Spouse current occupational status: retired Feels Safe at Home: Yes Smoking Status: Never smoker Hx Alcohol Use: No Hx Substance Use: No caffeine: Yes Seatbelt Use: always Physical Exam Physical Exam: Constitutional: Alert, cooperative and in no distress. HEENT: Unremarkable Neck: No jugular venous distention, carotid pulses are normal and equal bilaterally without bruits. Pulmonary: Clear to auscultation bilaterally. Cardiac: Regular rhythm with no murmur, gallop or rub. Abdomen: Soft, nontender with normal bowel sounds. Extremities: No edema. Distal pulses intact. Neurologic: No focal findings. Gait is steady. Skin: No rash, ecchymoses or petechiae. Results & Data Vital Signs (Past 12 Hours) Vital Signs Temp Pulse Pulse Resp BP Pulse Ox 08/08/19 11:00 36.5 C 82 18 97/53 L 91 08/08/19 09:28 82 08/08/19 07:31 36.8 C 80 18 93/57 L 93 08/08/19 02:25 37.3 C 99 H 20 96/59 L 90 08/08/19 01:48 97 H 22 98 08/08/19 00:46 112 H 08/08/19 00:00 102 H Laboratory Results Abnormal lab results 08/07/19 08/07/19 08/07/19 Range/Units 15:00 15:00 16:41 RBC 4.24 L (4.7-6.1) M/uL Hgb 12.6 L (14.0-18.0) g/dL Hct 38.4 L (42-52) % Lymph # (Auto) 4.52 H (1.2-3.4) K/uL Reeves # (Auto) 0.86 H (0.11-0.59) K/uL APTT (21.0-31.0) Seconds Carbon Dioxide 18 L (21-32) mmol/L Anion Gap 15.0 H (3-11) BUN 30 H (7-18) mg/dl Creatinine 1.82 H (0.6-1.4) mg/dl Glucose 151 H (70-99) mg/dl POC Glucose (70-99) Hemoglobin A1c (4.5-5.6) % Lactate 3.4 H* (0.4-2.0) mmol/L Calcium (8.5-10.1) mg/dl Magnesium (1.8-2.4) mg/dl AST 12 L (15-37) U/L Total Protein (6.4-8.2) gm/dl Albumin (3.4-5.0) gm/dl Beta-Hydroxybutyric Acd (0.2-2.81) mg/dl TSH 8.900 H (0.300-4.500) uIu/ml Urine Glucose (UA) (Negative) Urine Blood (Negative) Ur Leukocyte Esterase (Negative) 08/07/19 08/08/19 08/08/19 Range/Units 20:33 00:32 05:15 RBC (4.7-6.1) M/uL Hgb (14.0-18.0) g/dL Hct (42-52) % Lymph # (Auto) (1.2-3.4) K/uL Reeves # (Auto) (0.11-0.59) K/uL APTT 65.3 H* (21.0-31.0) Seconds Carbon Dioxide (21-32) mmol/L Anion Gap (3-11) BUN (7-18) mg/dl Creatinine (0.6-1.4) mg/dl Glucose (70-99) mg/dl POC Glucose 225 H (70-99) Hemoglobin A1c (4.5-5.6) % Lactate (0.4-2.0) mmol/L Calcium (8.5-10.1) mg/dl Magnesium (1.8-2.4) mg/dl AST (15-37) U/L Total Protein (6.4-8.2) gm/dl Albumin (3.4-5.0) gm/dl Beta-Hydroxybutyric Acd (0.2-2.81) mg/dl TSH (0.300-4.500) uIu/ml Urine Glucose (UA) 1+ H (Negative) Urine Blood 1+ H (Negative) Ur Leukocyte Esterase Trace H (Negative) 08/08/19 08/08/19 08/08/19 Range/Units 06:47 06:47 06:47 RBC 3.89 L (4.7-6.1) M/uL Hgb 11.7 L (14.0-18.0) g/dL Hct 34.8 L (42-52) % Lymph # (Auto) 0.52 L (1.2-3.4) K/uL Reeves # (Auto) (0.11-0.59) K/uL APTT (21.0-31.0) Seconds Carbon Dioxide (21-32) mmol/L Anion Gap (3-11) BUN 34 H (7-18) mg/dl Creatinine 1.86 H (0.6-1.4) mg/dl Glucose 325 H* (70-99) mg/dl POC Glucose (70-99) Hemoglobin A1c 8.7 H (4.5-5.6) % Lactate (0.4-2.0) mmol/L Calcium 7.8 L (8.5-10.1) mg/dl Magnesium 1.5 L (1.8-2.4) mg/dl AST 12 L (15-37) U/L Total Protein 6.0 L (6.4-8.2) gm/dl Albumin 2.9 L (3.4-5.0) gm/dl Beta-Hydroxybutyric Acd 3.17 H (0.2-2.81) mg/dl TSH (0.300-4.500) uIu/ml Urine Glucose (UA) (Negative) Urine Blood (Negative) Ur Leukocyte Esterase (Negative) 08/08/19 08/08/19 08/08/19 Range/Units 06:47 07:19 07:20 RBC (4.7-6.1) M/uL Hgb (14.0-18.0) g/dL Hct (42-52) % Lymph # (Auto) (1.2-3.4) K/uL Reeves # (Auto) (0.11-0.59) K/uL APTT 78.7 H* (21.0-31.0) Seconds Carbon Dioxide (21-32) mmol/L Anion Gap (3-11) BUN (7-18) mg/dl Creatinine (0.6-1.4) mg/dl Glucose (70-99) mg/dl POC Glucose 311 H* 333 H* (70-99) Hemoglobin A1c (4.5-5.6) % Lactate (0.4-2.0) mmol/L Calcium (8.5-10.1) mg/dl Magnesium (1.8-2.4) mg/dl AST (15-37) U/L Total Protein (6.4-8.2) gm/dl Albumin (3.4-5.0) gm/dl Beta-Hydroxybutyric Acd (0.2-2.81) mg/dl TSH (0.300-4.500) uIu/ml Urine Glucose (UA) (Negative) Urine Blood (Negative) Ur Leukocyte Esterase (Negative) 08/08/19 08/08/19 Range/Units 11:00 11:01 RBC (4.7-6.1) M/uL Hgb (14.0-18.0) g/dL Hct (42-52) % Lymph # (Auto) (1.2-3.4) K/uL Reeves # (Auto) (0.11-0.59) K/uL APTT (21.0-31.0) Seconds Carbon Dioxide (21-32) mmol/L Anion Gap (3-11) BUN (7-18) mg/dl Creatinine (0.6-1.4) mg/dl Glucose (70-99) mg/dl POC Glucose 352 H* 334 H* (70-99) Hemoglobin A1c (4.5-5.6) % Lactate (0.4-2.0) mmol/L Calcium (8.5-10.1) mg/dl Magnesium (1.8-2.4) mg/dl AST (15-37) U/L Total Protein (6.4-8.2) gm/dl Albumin (3.4-5.0) gm/dl Beta-Hydroxybutyric Acd (0.2-2.81) mg/dl TSH (0.300-4.500) uIu/ml Urine Glucose (UA) (Negative) Urine Blood (Negative) Ur Leukocyte Esterase (Negative) Diagnostic Findings His electrocardiogram on arrival August 07, 2019 at 1547 shows sinus rhythm with premature atrial beats, a possible inferior myocardial infarction although that is not clear. A repeat electrocardiogram done at 1741 the same day shows atrial fibrillation with a heart rate of [address]-T abnormalities. An echocardiogram this morning shows normal left ventricular size and function without wall motion abnormalities. Aortic sclerosis and mild mitral regurgitation. Nothing significant. PG Care Time/CCT Total # of Minutes Spent Total Time Spent with Patient: Total time spent is greater than 50% in coordination of care (as documented) at patient's floor/unit and/or counseling patient:
[2019-08-08 15:38] LABS: Partial Thromboplastin Ratio 2.2
[2019-08-08 15:40] LABS: Partial Thromboplastin Time 60.6 Seconds (21.0-31.0)
[2019-08-08] MEDS ORDERED: LANTUS PER UNIT CHARGE SQ SCH (21:00)
[2019-08-08] MEDS: SIMVASTATIN 40 MG TAB PO SCH (21:44)
--- NOTE | 2019-08-08 22:02 | Hospitalist Progress Note ---
Date of Service August 08, 2019 Assessment & Plan (1) Atrial fibrillation with RVR: Plan Admit patient to telemetry under observation status Order 2D echo: completed. Discussed with patient benefits and risks of anticoagulation, will start with heparin drip Start patient on rate controlling agents: will start dig. obtain serial cardiac enz: x3 NTG SL/topical prn CP consult manager fiber pain management Check hemoglobin A1c/lipids to stratify patient risk factors repeat EKG prn chest pain (2) Syncope: Likely secondary to above (3) Acute hypotension: Hemodynamic instability, possibly secondary to A. fib RVR Improved with IV fluids Hold blood pressure medications Since he is currently sinus rhythm we will hold off Cardizem/metoprolol If he would develop A. fib again we will consider digoxin IV or amiodarone Although would rather avoid amiodarone for now due to abnormal chest imaging might be indicating underlying chronic pulmonary disease (4) Type 2 diabetes mellitus: Hold oral hypoglycemic, start patient on sliding scale insulin (5) Interstitial lung disease: No known disease but appears in the imaging that he has some reticulo- vascular density. Family were instructed to do sleep study as an outpatient after recovery (6) Hyperlipidemia: hemoglobin A1c: 8.7 and lipid panel Continue simvastatin Subjective Patient seen for syncope. Patient currently has no repeat symptoms at this time. Patient has no new symptoms today. Review of Systems Review of Systems: Review of system Constitutional: No fever / no chills / no sweats / no weakness / no fatigue Eyes: no blurring of vision / no eye pain / no discharge / no redness ENT: no hearing loss / no epistaxis /no swallowing problems Respiratory: Shortness of breath and slight dry cough Cardiovascular: no Chest pain / no lower extremity edema / no palpitation Abdomen: no pain / no nausea / no vomiting / no constipation Musculoskeletal: no joint pain / no muscle pain / no joint swelling Genitourinary: no dysuria / no incontinence / no urinary retention Neurologic: Syncope as mentioned in HPI, no focal weakness / no numbness/tingling / no ataxia Psychiatric: no depression symptoms / no anxiety / no insomnia Endocrine: no excessive thirst / no excessive urination Hematologic: no abnormal bleeding / no bruising / no LN swelling Skin: No rash / no pallor Physical Exam Physical Exam: General morbidly obese, patient is not in distress at this time. HEENT: Atraumatic , normocephalic /no jaundice /no pallor /anicteric /no dry mucous membrane /normal external ear inspection Neck: Supple /no swelling /central trach Heart: S1/S2 normal/regular rate and rhythm/no gallop /no rub /no murmur Lungs: Poor inspiratory effort, decreased air entry bilaterally, scattered rhonchi Abdomen: Soft/nontender/no guarding/no rebound/no organomegaly/no pulsatile mass Musculoskeletal: No swelling/no edema/no tenderness/normal range of motion Neuro exam: Awake alert oriented 3/cranial nerves II through XII appear to be intact/sensation intact/moves all extremities/no abnormal movements Psychiatric evaluation: No depressed mood/normal affect Skin: No rash on exposed skin area/no erythema Extremity: Normal pulse/no pitting edema/no clubbing or cyanosis Results & Data Vital Signs (Past 12 Hours) Vital Signs Temp Pulse Pulse Resp BP Pulse Ox 08/08/19 19:36 36.9 C 76 23 111/69 96 08/08/19 16:00 73 08/08/19 15:24 36.7 C 64 16 109/62 92 08/08/19 12:07 36.8 C 20 102/59 L 08/08/19 11:00 36.5 C 82 18 97/53 L 91 PG Care Time/CCT Total # of Minutes Spent Total Time Spent with Patient: Total time spent is greater than 50% in coordination of care (as documented) at patient's floor/unit and/or counseling patient: (1) Type 2 diabetes mellitus Chronic kidney disease stage: stage 3 (moderate) Diabetes mellitus complication detail: with chronic kidney disease Diabetes mellitus complication status: with kidney complications Diabetes mellitus correction insulin use: without terminologist use Qualified Code(s): E11.22 - Type 2 diabetes mellitus with diabetic chronic kidney disease; N18.3 - Chronic kidney disease, stage 3 (moderate) (2) Hyperlipidemia Hyperlipidemia type: unspecified Qualified Code(s): E78.5 - Hyperlipidemia, unspecified (3) Syncope Syncope type: unspecified Qualified Code(s): R55 - Syncope and collapse
[2019-08-09] MEDS: INSULIN ASPART 100 UNITS/ML 3 ML PEN SC SCH ×7 (00:15→21:44)
[2019-08-09] MEDS: HEPARIN SODIUM/DEXTROSE 25,000 UNITS/500 ML BAG IV SCH ×2 (01:18→21:41)
[2019-08-09 06:44] LABS: Partial Thromboplastin Ratio 1.7
[2019-08-09 06:47] LABS: Partial Thromboplastin Time 46.4 Seconds (21.0-31.0)
[2019-08-09] MEDS: PANTOprazole 40 MG TAB PO SCH (08:29)
--- NOTE | 2019-08-09 09:12 | Pharmacy Report ---
Pharmacy Glycemic Short Note 2 - Date of Service August 09, 2019 - Glycemic Short BSG Results (Last 24 hours): 08/08/19 08/08/19 08/08/19 11:00 11:01 14:23 POC Glucose 352 H* 334 H* 213 H 08/08/19 08/08/19 08/09/19 16:31 20:57 00:11 POC Glucose 101 H 77 74 08/09/19 08/09/19 04:51 07:27 POC Glucose 90 98 OUTPATIENT ANTIDIABETIC REGIMEN: * Glimepiride 2 mg PO qAM * Metformin 1000 mg PO BIDM * A1c = 8.7 % (08/08/19) ASSESSMENT: * Continues on heparin drip for new onset Afib w/ RVR (running at 15 mL/hr - approximately 360 mL over past 24 hours for 18 g of dextrose) * BSGs trending down significantly throughout the day yesterday (334 -> 213 -> 101 -> 74 mg/dL) * Fasting BSG this AM if 98 mg/dL * Patient received 70 units of insulin yesterday (30 of which was NPH to account for steroid-induced hyperglycemia with Solu-medrol 40 mg IV x 1) * Pt is maintained on oral antidiabetic agents as an outpatient * Oral agents are not recommended for inpatient use due to drug interactions, changing PO intake, and difficulty titrating for acute hyper/hypoglycemia. ADA recommends re-initiating outpatient oral agents 1-2 days prior to discharge if/when appropriate if they were held on admission. PLAN FOR INPATIENT GLYCEMIC CONTROL: * Will hold oral agents for admission and utilize SQ basal bolus insulin regimen which is the recommended regimen for inpatient glycemic control. * Will initiate weight based insulin dosing for insulin saqib patient and titrate based on BSG trends. * Basal insulin - Lantus 15 units given with lunch (approximately 0.2 unit/kg) * Will set Lantus scale tonight, less than 100 mg/dL - 0 units, 100-160 mg/dL - 5 units, greater than 160 mg/dL - 10 units * Bolus insulin - continue CF and CR (weight/stress of 2) * NovoLog per scale ACHS or Q6hrs while NPO * Goal Range: Low 120 mg/dL - High 160 mg/dL * Correction Factor: 30 mg/dL/unit * Nutritional / Prandial insulin per carb ratio of 1 unit per 10 grams CHO consumed PLAN FOR DISCHARGE: * HbA1c is currently elevated at 8.7%. A reasonable goal for this patient would be less than 8% given advanced age and comorbidities. * Patient's SCr is currently elevated at 1.82 mg/dL (baseline in April of this year was 1.26 mg/dL) on top of CKD stage 3 * Consider conversion of glimepiride 2 mg PO daily to glipizide 2.5 mg PO daily (titrated up in 2.5-5 mg increments every few days/week to a maximum dose of 20 mg PO daily) - glipizide is the preferred sulfonylurea in patients with renal impairment. * Will need to reassess appropriateness of metformin at time of discharge given current NISHA. For GFR between 30-45 mL/min - consider risk/benefit of continuation/discontinuation and if continued, consider a maximum of 1 gram per day. * Could also consider the addition of a DPP-4 inhibitor, such as linagliptin (Tradjenta) 5 mg PO daily - does not require dose adjustment in renal impairment
[2019-08-09] MEDS: SODIUM CHLORIDE 0.9% 1000ML 1,000 ML IV SCH (11:52)
[2019-08-09] MEDS ORDERED: LANTUS PER UNIT CHARGE SQ ONE (12:30)
[2019-08-09] MEDS: DIGOXIN 0.125 MG TAB PO SCH (17:19)
[2019-08-09] MEDS ORDERED: LANTUS PER UNIT CHARGE SQ SCH (21:00)
[2019-08-09] MEDS: SIMVASTATIN 40 MG TAB PO SCH (21:41)
--- NOTE | 2019-08-09 22:49 | Hospitalist Progress Note ---
Date of Service August 09, 2019 Assessment & Plan (1) Atrial fibrillation with RVR: Plan Admit patient to telemetry Order 2D echo: completed. Discussed with patient benefits and risks of anticoagulation, on heparin drip. Will transtion to eliquis, however will recheck creat, to see if patient can take full dose of eliquis Start patient on rate controlling agents: received first dose of dig. obtain serial cardiac enz: x3 NTG SL/topical prn CP consulted wool dyer: appreciate input pain management (2) Syncope: Likely secondary to above; concern that this may be due to hypotension. Holding beta blockers. Patient also required fluids. (3) Acute hypotension: Hemodynamic instability, possibly secondary to A. fib RVR Improved with IV fluids Hold blood pressure medications Since he is currently sinus rhythm we will hold off Cardizem/metoprolol Although would rather avoid amiodarone for now due to abnormal chest imaging might be indicating underlying chronic pulmonary disease (4) Type 2 diabetes mellitus: Hold oral hypoglycemic, start patient on sliding scale insulin (5) Interstitial lung disease: No known disease but appears in the imaging that he has some reticulo- vascular density. Family were instructed to do sleep study as an outpatient after recovery (6) Hyperlipidemia: hemoglobin A1c: 8.7 and lipid panel Continue simvastatin Subjective Patient reports feeling better. He has no new complaints. He states he does not use oxygen at home, this is confirmed by his spouse. He currently is on 4 liters nasal cannula Review of Systems Review of Systems: Review of system Constitutional: No fever / no chills / no sweats / no weakness / no fatigue Eyes: no blurring of vision / no eye pain / no discharge / no redness ENT: no hearing loss / no epistaxis /no swallowing problems Respiratory: Shortness of breath and slight dry cough Cardiovascular: no Chest pain / no lower extremity edema / no palpitation Abdomen: no pain / no nausea / no vomiting / no constipation Musculoskeletal: no joint pain / no muscle pain / no joint swelling Genitourinary: no dysuria / no incontinence / no urinary retention Neurologic: Syncope as mentioned in HPI, no focal weakness / no numbness/tingling / no ataxia Psychiatric: no depression symptoms / no anxiety / no insomnia Endocrine: no excessive thirst / no excessive urination Hematologic: no abnormal bleeding / no bruising / no LN swelling Skin: No rash / no pallor Physical Exam Physical Exam: General morbidly obese, patient is not in distress at this time. HEENT: Atraumatic , normocephalic /no jaundice /no pallor /anicteric /no dry mucous membrane /normal external ear inspection Neck: Supple /no swelling /central trach Heart: S1/S2 normal/regular rate and rhythm/no gallop /no rub /no murmur Lungs: clear through auscultation Abdomen: Soft/nontender/no guarding/no rebound/no organomegaly/no pulsatile mass Musculoskeletal: No swelling/no edema/no tenderness/normal range of motion Neuro exam: Awake alert oriented 3/cranial nerves II through XII appear to be intact/sensation intact/moves all extremities/no abnormal movements Psychiatric evaluation: No depressed mood/normal affect Skin: No rash on exposed skin area/no erythema Extremity: Normal pulse/no pitting edema/no clubbing or cyanosis Results & Data Vital Signs (Past 12 Hours) Vital Signs Temp Pulse Pulse Resp BP Pulse Ox 08/09/19 18:59 37.1 C 78 19 134/80 92 08/09/19 17:19 79 08/09/19 16:00 36.8 C 77 19 143/66 H 94 08/09/19 11:12 37.0 C 84 19 133/63 93 PG Care Time/CCT Total # of Minutes Spent Total Time Spent with Patient: Total time spent is greater than 50% in coordination of care (as documented) at patient's floor/unit and/or counseling patient: (1) Type 2 diabetes mellitus Chronic kidney disease stage: stage 3 (moderate) Diabetes mellitus complication detail: with chronic kidney disease Diabetes mellitus complication status: with kidney complications Diabetes mellitus keno terminal operator insulin use: without shelter use Qualified Code(s): E11.22 - Type 2 diabetes mellitus with diabetic chronic kidney disease; N18.3 - Chronic kidney disease, stage 3 (moderate) (2) Hyperlipidemia Hyperlipidemia type: unspecified Qualified Code(s): E78.5 - Hyperlipidemia, unspecified (3) Syncope Syncope type: unspecified Qualified Code(s): R55 - Syncope and collapse
[2019-08-09] MEDS ORDERED: METOPROLOL TARTRATE 1 MG/ML VIAL IV ONE (23:48)
[2019-08-10] MEDS: METOPROLOL TARTRATE 1 MG/ML VIAL IV PRN ×5 (00:08→08:42)
[2019-08-10] MEDS ORDERED: LANTUS PER UNIT CHARGE SQ ONE (08:30)
[2019-08-10 08:33] LABS: Basophils # (auto) 0.01 K/uL (0-0.2); Basophils % (auto) 0.2 %; Eosinophils # (auto) 0.04 K/uL (0-0.5); Eosinophils % (auto) 0.7 %; Hematocrit (blood only) 32.7 % (42-52); Hemoglobin 11.2 g/dL (14.0-18.0); Immature Granulocytes # (auto) 0.02 K/uL (0.00-0.02); Immature Granulocytes % (auto) 0.4 %; Lymphocytes # (auto) 0.92 K/uL (1.2-3.4); Lymphocytes % (auto) 16.1 %; Mean Corpuscular Hemoglobin 29.9 pg (25-34); Mean Corpuscular Hgb Conc 34.3 g/dL (32-36); Mean Corpuscular Volume 87.2 fL (80-100); Mean Platelet Volume 9.8 fL (7.4-10.4); Monocytes # (auto) 0.61 K/uL (0.11-0.59); Monocytes % (auto) 10.7 %; Neutrophils # (auto) 4.11 K/uL (1.4-6.5); Neutrophils % (auto) 71.9 %; Platelet Count 154 K/uL (130-400); RDW Standard Deviation 41.9 fL (36.4-46.3); Red Blood Count 3.75 M/uL (4.7-6.1); White Blood Count 5.71 K/uL (4.8-10.8)
[2019-08-10 08:37] LABS: Calcium 8.3 mg/dl (8.5-10.1); Creatinine Clr Calc Pharmacy 42.6 ml/min; Est GFR (African American) 56.9; Est GFR (Non-African American) 49.1
[2019-08-10] MEDS: INSULIN ASPART 100 UNITS/ML 3 ML PEN SC SCH ×4 (08:37→20:57)
[2019-08-10] MEDS: PANTOprazole 40 MG TAB PO SCH (08:38)
[2019-08-10] MEDS ORDERED: HEPARIN DRIP~STOP ORDER ONE (09:30)
--- NOTE | 2019-08-10 09:30 | Cardiology Progress Note ---
Date of Service August 10, 2019 Assessment & Plan (1) Loss of consciousness: He has had several episodes of loss of consciousness, specifically in May when he came into the emergency room although that was associated with nausea and vomiting and was attributed to a vagal reaction, and now this admission. On this occasion he clearly had hypotension, although atrial fibrillation may have aggravated the hypotension it was present nevertheless. The hypotension appears to be a cause of his loss of consciousness on this occasion. His history of these going back even to when they were first is a little bit confusing, perhaps those were vagal events back then although this current episode does not seem to be clearly vagally mediated. Apparently episodes have been recurrent over the last several years. Some sort of outpatient monitoring is probably reasonable in this situation. We could do outpatient 30-day monitoring, but that is not likely to give us an answer given his history of very infrequent episodes. an implantable loop recorder is probably a better option. In addition as noted below will give us information about his atrial fibrillation burden and rate. I discussed the indications, procedure, risks and alternatives of this with him and he is agr eeable. I tentatively have him scheduled for 1230 today for loop recorder implantation. He could go home today if his condition otherwise justifies it. (2) Acute hypotension: I am not clear why he was hypotensive on admission. Perhaps he was dehydrated, it is too prolonged to be consistent with primarily a vagal reaction, it was present both with and without atrial fibrillation so atrial fibrillation is not the primary cause of it. In addition with development of atrial fibrillation last evening his blood pressure did not drop, in fact it was little bit higher. Dehydration could be due to poor oral intake, possibly osmotic diuresis from his elevated blood sugar. He is on minimal medications to cause low blood pressure (just low-dose metoprolol) so unless our medication list is incomplete, which is possible, that does not explain the episode. (3) Atrial fibrillation with RVR: He did have atrial fibrillation identified in the emergency room, it only lasted 1/2-hour and the rate was about 130 bpm. Based on his vital sign record his blood pressure done 4 times during the time of atrial fibrillation was not markedly reduced compared to other times although it is reported that his blood pressure dropped during atrial fibrillation. His blood pressure is recorded as slightly higher after termination of the atrial fibrillation then during (ranging from 85-92 systolic during atrial fibrillation and being just over 100 after termination) so this is consistent with some drop in blood pressure however his blood pressure was 77/45 before the atrial fibrillation started. On the other hand with development of atrial fibrillation last evening his blood pressure did not drop, but afterwards it was somewhat lower but there appears to be some lability to his blood pressure. Based on this might be good to try to control the rate during atrial fibrillation, however calcium blockade and beta-blockade are likely to reduce his blood pressure at other times as well. I would recommend continue to try digoxin to try to avoid hypotension and help with some rate control during atrial fibrillation, additionally I agree with anticoagulation since we do not know how often he has the arrhythmia, but given his asymptomatic state and now the longer duration I suspect he has more of it than we realize. A loop recorder may be beneficial to document the frequency and rate during atrial fibrillation as a management tool. It has algorithms built into it which specifically look for atrial fibrillation, even at a controlled heart rate. (4) HTN (hypertension): He has a history of hypertension, but interestingly he is not consistently hypertensive here despite minimal blood pressure medications as an outpatient. He does have a somewhat labile blood pressure. If we are confident that he is medications are all accounted for in his history that is hard to explain and it may pay to consider some other cause for hypotension. Subjective He feels well today, he has had no further lightheadedness, presyncope or loss of consciousness. He also is back in atrial fibrillation since last evening, and he has no awareness of it. Physical Exam Physical Exam: Constitutional: Alert, cooperative and in no distress. Pulmonary: Clear to auscultation bilaterally. Cardiac: Irregular rapid rhythm with no murmur, gallop or rub. Abdomen: Soft, nontender with normal bowel sounds. Extremities: No edema. Skin: No rash, ecchymoses or petechiae. Results & Data Vital Signs (Past 12 Hours) Vital Signs Temp Pulse Pulse Resp BP BP Pulse Ox 08/10/19 08:42 134 H 115/70 08/10/19 07:06 36.6 C 118 H 18 109/56 L 93 08/10/19 02:48 37.2 C 112 H 18 100/67 91 08/10/19 00:42 109/66 08/10/19 00:20 140 H 108/71 09/25/19 00:17 108/71 08/10/19 00:08 140 H 114/63 08/10/19 00:00 116/63 08/09/19 23:52 140 H 144/69 H 08/09/19 23:02 36.8 C 109 H 20 144/69 H 91 08/09/19 22:46 80 Diagnostic Findings Telemetry: He wanted atrial fibrillation in the evening of August 09, 2019 and has remained in it, his heart rate was little bit fast when he first went into it, this morning it is averaging around 120 bpm. PG Care Time/CCT Total # of Minutes Spent Total Time Spent with Patient: Total time spent is greater than 50% in coordination of care (as documented) at patient's floor/unit and/or counseling patient:
[2019-08-10] MEDS ORDERED: DIGOXIN 250 MCG in SYRINGE 9 ML IV ONE (09:45)
[2019-08-10 09:46] LABS: Partial Thromboplastin Ratio 1.4; Partial Thromboplastin Time 38.7 Seconds (21.0-31.0)
[2019-08-10] MEDS: LACTATED RINGER'S 1,000 ML IV SCH (10:09)
--- NOTE | 2019-08-10 11:07 | Pharmacy Report ---
Pharmacy Glycemic Short Note 2 - Date of Service August 10, 2019 - Glycemic Short BSG Results (Last 24 hours): 08/09/19 08/09/19 08/09/19 11:16 16:45 20:37 Glucose POC Glucose 196 H 254 H 220 H 08/10/19 08/10/19 05:32 07:19 Glucose 141 H POC Glucose 134 H OUTPATIENT ANTIDIABETIC REGIMEN: * Glimepiride 2 mg PO qAM * Metformin 1000 mg PO BIDM * A1c = 8.7 % (08/08/19) ASSESSMENT: * Heparin gtt discontinued this morning - patient transitioned to apixaban 5 mg PO BID * will monitor for changing insulin requirements * BSGs trending up throughout the day yesterday (90 -> 196 -> 254 -> 220 mg/dL) * Fasting BSG this AM if 134 mg/dL * Patient received 43 units of insulin yesterday (25 of which was basal) * Per cardiology, patient scheduled for loop recorder implantation today and could potentially be discharged later today * NPO starting this morning in preparation for procedure (patient did eat breakfast) * Pt is maintained on oral antidiabetic agents as an outpatient * Oral agents are not recommended for inpatient use due to drug interactions, changing PO intake, and difficulty titrating for acute hyper/hypoglycemia. ADA recommends re-initiating outpatient oral agents 1-2 days prior to discharge if/when appropriate if they were held on admission. PLAN FOR INPATIENT GLYCEMIC CONTROL: * Will hold oral agents for admission and utilize SQ basal bolus insulin regimen which is the recommended regimen for inpatient glycemic control. * Will initiate weight based insulin dosing for insulin saqib patient and titrate based on BSG trends. * Basal insulin * Will adjust Lantus to 13 units this AM * Lantus sliding scale this evening (0 units for BSG < 100 mg/dL, 7 units for BSG 100-160 mg/dL, and 13 units for BSG > 160 mg/dL) - based on weight/stress of 1 and 2 respectively for 7 and 13 units. * Bolus insulin - tighten CF and CR based on persistently elevated BSGs yesterday * NovoLog per scale ACHS or Q6hrs while NPO * Goal Range: Low 120 mg/dL - High 160 mg/dL * Correction Factor: 25 mg/dL/unit * Nutritional / Prandial insulin per carb ratio of 1 unit per 8 grams CHO consumed PLAN FOR DISCHARGE: * HbA1c is currently elevated at 8.7%. A reasonable goal for this patient would be less than 8% given advanced age and comorbidities. * Patient's SCr is currently elevated at 1.82 mg/dL (baseline in April of this year was 1.26 mg/dL) on top of CKD stage 3 * Consider conversion of glimepiride 2 mg PO daily to glipizide 2.5 mg PO daily (titrated up in 2.5-5 mg increments every few days/week to a maximum dose of 20 mg PO daily) - glipizide is the preferred sulfonylurea in patients with renal impairment. * Will need to reassess appropriateness of metformin at time of discharge given current NISHA. For GFR between 30-45 mL/min - consider risk/benefit of continuation/discontinuation and if continued, consider a maximum of 1 gram per day. * Could also consider the addition of a DPP-4 inhibitor, such as linagliptin (Tradjenta) 5 mg PO daily - does not require dose adjustment in renal impairment
--- NOTE | 2019-08-10 11:11 | XRay Report ---
TWO VIEW CHEST CLINICAL HISTORY: Hypoxia. FINDINGS: PA and lateral chest radiographs are compared to study dated 08/07/2019 and correlated with chest CT dated 08/05/2017. The heart is enlarged and there is atherosclerotic calcification of the th oracic aorta. The pulmonary vasculature is noncongested. Changes of emphysema and chronic interstitia l lung disease are similar to previous. There is bibasilar scarring/atelectasis. Question superimpose d airspace consolidation at both lung bases. No pleural effusion or pneumothorax is seen. The skeleta l structures are osteopenic. The bony thorax is grossly intact. IMPRESSION: 1. Cardiomegaly without radiographic evidence of congestive failure. 2. Findings of emphysema and chronic interstitial lung disease are similar to previous. 3. Questioned developing airspace opacities at both lung bases. Correlate clinical history for eviden ce of superimposed pneumonia/aspiration pneumonitis. Radiographic follow-up to resolution is recommen ded. Electronically signed by: Rashad Olmos M.D. 08/10/2019 11:10 AM
[2019-08-10] MEDS ORDERED: LIDOCAINE HCL 1% 20 ML VIAL ONE (13:07)
[2019-08-10] MEDS ORDERED: CEFAZOLIN 250 MG/ML 1 GM VIAL ONE (13:09)
[2019-08-10] MEDS ORDERED: BACITRACIN OINT 0.9 GM PKT ONE (13:23)
--- NOTE | 2019-08-10 13:32 | Operative Report ---
Post Operative Report Pre & Post Diagnosis Operation Date: 08/10/19 12:15 Preoperative diagnosis: syncope, PAF Postoperative diagnosis: same Procedure Operation Date: 08/10/19 12:15 Actual Procedures p Implant Cardiac Event Recorder - Owen Jonas MD Surgeon Owen Jonas MD [employer] None Estimated Blood Loss 2 Findings Consistent with Post-Op Diagnosis Specimens None Anesthesia Type Local Complications none Disposition Accompanied Patient To Recovery: No Description of Procedure After obtaining informed consent for the procedure, the patient was brought to the laboratory having had nothing by mouth after midnight. The patient was prepped and draped in the standard sterile manner for a loop recorder implantation. An area at the fourth left intercostal space and 1 cm left of the left sternal border was infiltrated with 1% lidocaine local anesthetic and a 0.5 cm incision was made through the skin. Using the loop recorder insertion tool the loop recorder was inserted through the incision at a 45 downward and leftward angle. The incision was closed with a subcutaneous continuous closure of 4-0 Vicryl followed by a running subcuticular skin closure of 4-0 Vicryl. Steri-Strips were applied and bacitracin ointment was placed on the incision. A dressing was appl ied. I attest to the content of the Intraoperative Record and any orders documented therein. Any exceptions are noted below.
[2019-08-10] MEDS: CEFAZOLIN 2000MG 2,000 MG/15 ML SYR IV SCH (13:53)
[2019-08-10] MEDS ORDERED: DIGOXIN 125 MCG in SYRINGE 9.5 ML IV SCH (14:00)
[2019-08-10] MEDS: APIXABAN 5 MG TABLET PO SCH ×2 (14:39→20:54)
[2019-08-10] MEDS: DIGOXIN 0.125 MG TAB PO SCH (17:27)
[2019-08-10] MEDS: SIMVASTATIN 40 MG TAB PO SCH (20:57)
[2019-08-10] MEDS ORDERED: LANTUS PER UNIT CHARGE SQ SCH (21:00)
--- NOTE | 2019-08-10 22:58 | Hospitalist Progress Note ---
Date of Service August 10, 2019 Assessment & Plan (1) Atrial fibrillation with RVR: Plan Admit patient to telemetry Order 2D echo: completed. Discussed with patient benefits and risks of anticoagulation, on heparin drip. Switched to eliquis today. Will give 5mg dose as creat is below the threshold of 1.5 Cardio loaded patient with dig. D/W cardio, will place loop recorder later today. obtain serial cardiac enz: x3 (negative) NTG SL/topical prn CP consulted air pumper: appreciate input pain management (2) Syncope: Likely secondary to above; concern that this may be due to hypotension. Holding beta blockers. Now placed on dig. Patient also required fluids. Patient will be on loop recorder. (3) Acute hypotension: Hemodynamic instability, possibly secondary to A. fib RVR Improved with IV fluids Hold blood pressure medications Since he is currently sinus rhythm we will hold off Cardizem/metoprolol Although would rather avoid amiodarone for now due to abnormal chest imaging might be indicating underlying chronic pulmonary disease (4) Type 2 diabetes mellitus: Hold oral hypoglycemic, start patient on sliding scale insulin (5) Interstitial lung disease: No known disease but appears in the imaging that he has some reticulo- vascular density. Family were instructed to do sleep study as an outpatient after recovery (6) Hyperlipidemia: hemoglobin A1c: 8.7 and lipid panel Continue simvastatin (7) Hypoxia: Had discussion with over phone. Patient did have a 2 steo, saturated well off oxygen at rest, but unable to obtain a pulse ox on ambulation. However, once pulse ox was obtain at the moment he sat down, O2 sat was 90%. Unable to qualify him for oxygen. Plan will be to likely discharge him in AM. Placed patient on incentive spirometry Subjective 89 yo male reports no new symptoms today. D/W nursing, patient continues to require oxygen. Review of Systems Review of Systems: Review of system Constitutional: No fever / no chills / no sweats / no weakness / no fatigue Eyes: no blurring of vision / no eye pain / no discharge / no redness ENT: no hearing loss / no epistaxis /no swallowing problems Respiratory: Shortness of breath and slight dry cough Cardiovascular: no Chest pain / no lower extremity edema / no palpitation Abdomen: no pain / no nausea / no vomiting / no constipation Musculoskeletal: no joint pain / no muscle pain / no joint swelling Genitourinary: no dysuria / no incontinence / no urinary retention Neurologic: Syncope as mentioned in HPI, no focal weakness / no numbness/tingling / no ataxia Psychiatric: no depression symptoms / no anxiety / no insomnia Endocrine: no excessive thirst / no excessive urination Hematologic: no abnormal bleeding / no bruising / no LN swelling Skin: No rash / no pallor Physical Exam Physical Exam: General morbidly obese, patient is not in distress at this time. HEENT: Atraumatic , normocephalic /no jaundice /no pallor /anicteric /no dry mucous membrane /normal external ear inspection Neck: Supple /no swelling /central trach Heart: S1/S2 normal/regular rate and rhythm/no gallop /no rub /no murmur Lungs: clear through auscultation except for rhonchi in right lower lobe. Abdomen: Soft/nontender/no guarding/no rebound/no organomegaly/no pulsatile mass Musculoskeletal: No swelling/no edema/no tenderness/normal range of motion Neuro exam: Awake alert oriented 3/cranial nerves II through XII appear to be intact/sensation intact/moves all extremities/no abnormal movements Psychiatric evaluation: No depressed mood/normal affect Skin: No rash on exposed skin area/no erythema Extremity: Normal pulse/no pitting edema/no clubbing or cyanosis Results & Data Vital Signs (Past 12 Hours) Vital Signs Temp Pulse Pulse Pulse Pulse Resp Resp 08/10/19 19:49 36.8 C 79 18 08/10/19 17:53 117 H 08/10/19 17:27 154 H 08/10/19 15:57 36.7 C 103 H 19 08/10/19 14:50 104 H 18 08/10/19 14:40 106 H 08/10/19 14:23 125 H 96 H 20 08/10/19 13:50 37.3 C 91 H 18 08/10/19 11:57 37.6 C H 109 H 19 Resp BP Pulse Ox Pulse Ox Pulse Ox 08/10/19 19:49 108/59 L 90 08/10/19 17:53 08/10/19 17:27 08/10/19 15:57 102/60 91 08/10/19 14:50 112/59 L 08/10/19 14:40 08/10/19 14:23 18 91 92 08/10/19 13:50 121/67 90 08/10/19 11:57 163/63 H 93 PG Care Time/CCT Total # of Minutes Spent Total Time Spent with Patient: Total time spent is greater than 50% in coordination of care (as documented) at patient's floor/unit and/or counseling patient: (1) Type 2 diabetes mellitus Chronic kidney disease stage: stage 3 (moderate) Diabetes mellitus complication detail: with chronic kidney disease Diabetes mellitus complication status: with kidney complications Diabetes mellitus ocean transportation intermediary insulin use: without ocean transportation intermediary use Qualified Code(s): E11.22 - Type 2 diabetes mellitus with diabetic chronic kidney disease; N18.3 - Chronic kidney disease, stage 3 (moderate) (2) Hyperlipidemia Hyperlipidemia type: unspecified Qualified Code(s): E78.5 - Hyperlipidemia, unspecified (3) Syncope Syncope type: unspecified Qualified Code(s): R55 - Syncope and collapse
[2019-08-11] MEDS: METOPROLOL TARTRATE 1 MG/ML VIAL IV PRN ×2 (00:25→08:46)
[2019-08-11] MEDS: CEFAZOLIN 2000MG 2,000 MG/15 ML SYR IV SCH (05:57)
[2019-08-11] MEDS: INSULIN ASPART 100 UNITS/ML 3 ML PEN SC SCH (08:09)
[2019-08-11] MEDS: APIXABAN 5 MG TABLET PO SCH (09:09)
[2019-08-11] MEDS: PANTOprazole 40 MG TAB PO SCH (09:10)
[2019-08-11] MEDS ORDERED: LANTUS PER UNIT CHARGE SQ ONE (09:15)
[2019-08-11] MEDS: LACTATED RINGER'S 1,000 ML IV SCH (09:31)
--- NOTE | 2019-08-22 08:10 | Discharge Summary ---
Date of Service August 11, 2019 Principal Diagnosis A. fib with RVR Discharge Exam General morbidly obese, patient is not in distress at this time. HEENT: Atraumatic , normocephalic /no jaundice /no pallor /anicteric /no dry mucous membrane /normal external ear inspection Neck: Supple /no swelling /central trach Heart: S1/S2 normal/regular rate and rhythm/no gallop /no rub /no murmur Lungs: clear through auscultation Abdomen: Soft/nontender/no guarding/no rebound/no organomegaly/no pulsatile mass Musculoskeletal: No swelling/no edema/no tenderness/normal range of motion Neuro exam: Awake alert oriented 3/cranial nerves II through XII appear to be intact/sensation intact/moves all extremities/no abnormal movements Psychiatric evaluation: No depressed mood/normal affect Skin: No rash on exposed skin area/no erythema Extremity: Normal pulse/no pitting edema/no clubbing or cyanosis Discharge Data Allergies Allergy/AdvReac Type Severity Reaction Status Date / Time No Known Drug Allergies Allergy . Verified 08/15/19 10:53 Consultations 08/07/19 18:20 Consult Cardiology Routine Procedures Performed Operation Date: 08/10/19 12:15 Actual Procedures p Implant Cardiac Event Recorder - Owen Jonas MD Ordered Studies 08/07/19 16:09 CT cervical spine wo con Stat CT head/brain wo con Stat 08/10/19 12:11 CL Cath Imgs for PACS use only Routine 08/10/19 12:15 EP Lab Images for PACS ONCE Hospital Course (1) Atrial fibrillation with RVR: Plan Admit patient to telemetry Order 2D echo: completed. Discussed with patient benefits and risks of anticoagulation, on heparin drip. Switched to eliquis today. Will give 5mg dose as creat is below the threshold of 1.5 Cardio loaded patient with dig. D/W cardio, will place loop recorder later today. obtain serial cardiac enz: x3 (negative) NTG SL/topical prn CP consulted mrp controller: appreciate input pain management (2) Syncope: Likely secondary to above; concern that this may be due to hypotension. Holding beta blockers. Now placed on dig. Patient also required fluids during hospital stay. Patient will be on loop recorder to assess for possible arrhythmias if this episode reocccurs (3) Acute hypotension: Hemodynamic instability, possibly secondary to A. fib RVR Improved with IV fluids Hold blood pressure medications Since he is currently sinus rhythm we will hold off Cardizem/metoprolol Although would rather avoid amiodarone for now due to abnormal chest imaging might be indicating underlying chronic pulmonary disease (4) Type 2 diabetes mellitus: Hold oral hypoglycemic, start patient on sliding scale insulin (5) Interstitial lung disease: No known disease but appears in the imaging that he has some reticulo- vascular density. Family were instructed to do sleep study as an outpatient after recovery (6) Hyperlipidemia: hemoglobin A1c: 8.7 and lipid panel Continue simvastatin (7) Hypoxia: Had discussion with over phone. Patient did have a 2 step, saturated well off oxygen at rest, but unable to obtain a pulse ox on ambulation. However, once pulse ox was obtain at the moment he sat down, O2 sat was 90%. Unable to qualify him for oxygen. Placed patient on incentive spirometry Total Time Total Time Spent Total Time Spent (In Minutes): 32 Total Time Includes: Examination of the Patient, Discharge Planning and Medication Reconciliation Discharge Plan Discharge Items Patient Disposition: Home - Self-Care Reason For Visit: NEW ONSET ATRIAL FIBRILLATION W/ HYPOTENSION Discharge Diagnosis: New onset a. fib w hypotension Activity: Resume your previous activity Non-emergency contact: Primary Care Provider Call non-emergency contact if: you have any medication questions Follow-up/Referrals: Wesley Harley MD [Primary Care Provider] - 08/15/19 11:00 am (Please, follow up with Dr. Wesley Harley, in the [place] Office, on ThursdayAugust 15 at 11:00 am. *If you need to change this appointment, call the office at [phone].) Diet: Regular Addtl Attending Provider Instructions: You were fund to have low blood pressure. This improved with fluids. You blood pressure improved. You were also found to have a fast heart rate and we diagnosed Atrial fibrillation. You will need to be on a blood thinner. Will also place you on antibiotics for possible pneumonitis. Will have you followup with your PCP in 1 week. Pending Studies at Discharge: No Stand-Alone Forms: My [facility] [place] Medications and DC Order Prescriptions: New digoxin 125 mcg Tablet 0.125 mg PO DAILY@1600 Qty: 30 RF: 0 amoxicillin-pot clavulanate 875-125 mg tablet 1 tab PO BID Qty: 14 RF: 0 Continued glimepiride 2 mg tablet 2 mg PO QAM Qty: 180 RF: 1 acetaminophen [Tylenol Arthritis Pain] 650 mg Tablet Extended Release 650 mg PO QAM PRN (Reason: Pain) RF: 0 aspirin [Adult Aspirin Regimen] 81 mg tablet,delayed release (DR/EC) 81 mg PO QAM RF: 0 Discontinued metoprolol succinate 25 mg tablet extended release 24 hr 12.5 mg PO QAM RF: 0 No Action Eliquis 5 mg tablet 5 mg PO BID Qty: 60 RF: 0 metformin 1,000 mg tablet 1,000 mg PO BID Qty: 20 RF: 0 lisinopril 5 mg tablet 5 mg PO .COMPLEX RF: 0 simvastatin 40 mg tablet 40 mg PO .COMPLEX RF: 0 omeprazole 20 mg capsule,delayed release(DR/EC) 20 mg PO DAILY RF: 0 lactobacillus combination no.8 PO DAILY RF: 0 Discharge Orders: Discharge Order (Routine); Ordered 08/11/19 Ordered By: Jesús Cuevas Admission Data Admit Date/Time: 08/07/19 18:20 Attending Provider: Jesús Cuevas Admit Provider: Elisa Hermosillo Primary Care Provider: Wesley Harley Other Providers: Tin Elizabeth Other Interventions: Discharge Summary Assessment (RN) Last Done: 08/11/19 11:00 DC Date/Time DO NOT enter until pt leaves facility: 08/11/19 11:42
== END 2019-08-11 11:42 | disposition home or self-care (01) | DRG 261 ==
LOC: ED 15:39 → 2S 18:20 → SUATTDRO 18:20 → 2S 18:47